=== PATIENT | female | born 1960 | race African-American/Black ===

== ENCOUNTER → 2018-03-28 | Day surgery (SDC) | payer SELFPAY ==
--- NOTE | 2018-04-02 10:26 | WOMENS IMAGING REPORT ---
EXAM DESCRIPTION: U/S BREAST BX; RIGHT DIG DX MAMMO NO CHG COMPLETED DATE/TIME: 03/28/2018 11:45 am; 03/28/2018 12:09 pm REASON FOR STUDY: RIGHT BREAST LUMP; S/P RIGHT BREAST US BX FOR CLIP PLACEMENT N63.10 N63.10 UNSPEC IFIED LUMP IN THE RIGHT BREAST, UNSPECIFIED NOE COMPARISON: 12/10/2016, 02/28/2018 MAMMOGRAMS 02/28/2018 RIGHT BREAST ULTRASOUND TECHNIQUE: The procedure was discussed with the patient and the patient agreed to proceed. The patient was scanned and the area of interest in the 11 o'clock position 5 to 6 cm from the nipple of the right breast was localized. This correlates with the area of concern on prior imaging studie s. This area was targeted for ultrasound-guided core biopsy. After sterile skin prep and 3 mL local lidocaine 1% for skin and deep tissue anesthesia, a 14 gauge c oaxial core biopsy needle was used to obtain several cores of tissue from the lesion. Under ultrasou nd guidance, a ribbon clip was placed in the areas sampled. There were no immediate post-procedure c omplications. MAMMOGRAM: Post-procedure two view mammogram was acquired in the digital mammogram suite. The clip wa s in the expected location. No significant hematoma. Pathology yields a diagnosis of invasive ductal carcinoma and ductal carcinoma in situ high-grade Pathology is concordant. LIMITATIONS: None. FINDINGS: Ultrasound guided breast biopsy as described above. POST PROCEDURE MAMMOGRAMS FOR MARKER PLACEMENT: Yes IMPRESSION: ULTRASOUND-GUIDED CORE BIOPSY OF THE RIGHT BREAST YIELDS A DIAGNOSIS OF INVASIVE DUCTAL CARCINOMA AND DCIS BI-RADS 6 KNOWN MALIGNANCY, APPROPRIATE ACTION SHOULD BE TAKEN COMMENT: COMMUNICATION: DR. RICHTER WAS NOTIFIED OF THESE FINDINGS 03/31/[address] MOULTON PATHOLOGIST Patient medication list reviewed: Yes- Quality ID# [id number]:Eligible professional attests to documenting i n the medical record they obtained, updated, or reviewed the patient's current medications. TECHNICAL DOCUMENTATION: JOB ID: [id number]- All Rights Reserved Reading location - IP/workstation name: [email or web address]
== END ==
LOC: WI 10:23
PROVIDERS: ATTEND Surgery
DX: C50.911 Malignant neoplasm of unspecified site of right female breast (principal)
CPT/HCPCS: 19083; 88305; 88342

== ENCOUNTER → 2018-04-16 | Outpatient (CLI) | payer SELFPAY ==
--- NOTE | 2018-04-16 17:55 | RADIOLOGY REPORT (SQ) ---
EXAM DESCRIPTION: CHEST PA/LATERAL COMPLETED DATE/TIME: 04/16/2018 5:00 pm REASON FOR STUDY: COUGH COMPARISON: 12/15/2013 EXAM PARAMETERS: NUMBER OF VIEWS: two views TECHNIQUE: Digital Frontal and Lateral radiographic views of the chest acquired. RADIATION DOSE: NA LIMITATIONS: none FINDINGS: LUNGS AND PLEURA: No opacities, masses or pneumothorax. No pleural effusion. MEDIASTINUM AND HILAR STRUCTURES: No masses or contour abnormalities. HEART AND VASCULAR STRUCTURES: Heart size is borderline. No pulmonary edema. BONES: No acute findings. HARDWARE: None in the chest. OTHER: No other significant finding. IMPRESSION: Borderline cardiomegaly without pulmonary edema. TECHNICAL DOCUMENTATION: JOB ID: [id number] [employer] All Rights Reserved Reading location - IP/workstation name: [email or web address]
[2018-04-16 18:15] LABS: ALANINE AMINOTRANSFERASE 26 U/L (9-52); ALBUMIN 4.4 g/dL (3.5-5.0); ALKALINE PHOSPHATASE 88 U/L (38-126); ANION GAP 9 (5-19); ASPARTATE AMINO TRANSFERASE 26 U/L (14-36); BILIRUBIN,DIRECT 0.2 mg/dL (0.0-0.4); BILIRUBIN,TOTAL 0.4 mg/dL (0.2-1.3); BLOOD UREA NITROGEN 15 mg/dL (7-20); CALCIUM 10.1 mg/dL (8.4-10.2); CARBON DIOXIDE 29 mmol/L (22-30); CHLORIDE 108 mmol/L (98-107); GLUCOSE 96 mg/dL (75-110); POTASSIUM 4.8 mmol/L (3.6-5.0); SODIUM 146.1 mmol/L (137-145)
== END ==
LOC: OD 16:38
PROVIDERS: ATTEND Surgery
DX: R05 Cough (principal); C50.919 Malignant neoplasm of unspecified site of unspecified female breast
CPT/HCPCS: 36415; 71046; 80053

== ENCOUNTER 2018-05-16 10:20 | Day surgery (SDC) | payer MEDICAID ==
--- NOTE | 2018-05-09 09:37 | RADIOLOGY REPORT (SQ) ---
EXAM DESCRIPTION: CHEST PA/LATERAL COMPLETED DATE/TIME: 05/09/2018 9:23 am REASON FOR STUDY: PRE OP COMPARISON: 04/16/2018 EXAM PARAMETERS: NUMBER OF VIEWS: two views TECHNIQUE: Digital Frontal and Lateral radiographic views of the chest acquired. RADIATION DOSE: NA LIMITATIONS: none FINDINGS: LUNGS AND PLEURA: No opacities, masses or pneumothorax. No pleural effusion. MEDIASTINUM AND HILAR STRUCTURES: No masses or contour abnormalities. HEART AND VASCULAR STRUCTURES: Stable heart size. No evidence for failure. BONES: No acute findings. HARDWARE: None in the chest. OTHER: No other significant finding. IMPRESSION: No acute findings in the chest. TECHNICAL DOCUMENTATION: JOB ID: [id number] [employer]- All Rights Reserved Reading location - IP/workstation name: [email or web address]
[2018-05-09 10:01] LABS: HEMATOCRIT 41.2 % (36.0-47.0); HEMOGLOBIN 14.3 g/dL (12.0-15.5); MEAN CORPUSCULAR HEMOGLOBIN 31.4 pg (27.0-33.4); MEAN CORPUSCULAR HGB CONC 34.8 g/dL (32.0-36.0); MEAN CORPUSCULAR VOLUME 90 fl (80-97); PLATELET COUNT 259 10^3/uL (150-450); RED BLOOD COUNT 4.56 10^6/uL (3.72-5.28); RED CELL DISTRIBUTION WIDTH 13.6 % (11.5-14.0); WHITE BLOOD COUNT 4.9 10^3/uL (4.0-10.5)
[2018-05-09 11:12] LABS: ANION GAP 9 (5-19); BLOOD UREA NITROGEN 13 mg/dL (7-20); CALCIUM 9.6 mg/dL (8.4-10.2); CARBON DIOXIDE 26 mmol/L (22-30); CHLORIDE 107 mmol/L (98-107); GLUCOSE 97 mg/dL (75-110); POTASSIUM 4.3 mmol/L (3.6-5.0); SODIUM 142.2 mmol/L (137-145)
--- NOTE | 2018-05-09 15:09 | EKG REPORT ---
SEVERITY:- NORMAL ECG - SINUS RHYTHM : Confirmed by: Aurelia Conrad 09-May-2018 15:09:10
[~2018-05-16 10:20] MED LIST: CEFAZOLIN SODIUM 2 GM in DEXTROSE 5%-WATER 100 ML IV PRN; IBUPROFEN 800 MG in NORMAL SALINE 250 ML IV PRN; LACTATED RINGERS 1000 ML IV PRN; LIDOCAINE 0.5% INJ-PF (5 MG/ML) 50 ML SDV SUBCUT PRN; LIDOCAINE 4% TRANSPARENT DRESSING 5 GM KIT ONE; LIDOCAINE 4% TRANSPARENT DRESSING 5 GM KIT TP PRN
[2018-05-16] MEDS ORDERED: METHYLENE BLUE 50 MG/10 ML AMPULE ONE (12:53)
[2018-05-16] MEDS ORDERED: BUPIVACAINE HCL 0.25 % INJ/PF (2.5 MG/1 ML) 30 ML VIAL ONE (12:53)
[2018-05-16] MEDS ORDERED: MIDAZOLAM 2 MG/2 ML INJ ONE (12:54)
--- NOTE | 2018-05-16 13:13 | RADIOLOGY REPORT (SQ) ---
EXAM DESCRIPTION: NM LYMPHATICS/LYMPH GLANDS COMPLETED DATE/TIME: 05/16/2018 12:36 pm REASON FOR STUDY: RT BREAST CANCER C50.911 MALIGNANT NEOPLASM OF UNSP SITE OF RIGHT FEMALE JOSE LUIS Z01 .818 ENCOUNTER FOR OTHER PREPROCEDURAL EXAMINATION COMPARISON: None. RADIONUCLIDE AND DOSE: 574 microcuries TC-99m tilmanocept - [employer]. The route of agent administration: Subcutaneous in the skin. TECHNIQUE: The skin of the right breast was prepped in sterile fashion. The radiopharmaceutical was administered in equally divided doses in the periareolar breast. LIMITATIONS: None. FINDINGS: Images demonstrate activity at the injection site. Additional focus of radiotracer activi ty at the expected location of a right supraclavicular or internal mammary node. IMPRESSION: ADMINISTRATION OF RADIOPHARMACEUTICAL FOR SENTINEL LYMPH NODE EVALUATION. Images demons trate activity at the injection site. Additional focus of radiotracer activity at the expected locat ion of the right supraclavicular or internal mammary node. TECHNICAL DOCUMENTATION: JOB ID: [id number] [employer]- All Rights Reserved Reading location - IP/workstation name: [email or web address]
[2018-05-16] MEDS ORDERED: RINGERS SOLUTION,LACTATED 500 ML IV PRN (13:18)
[2018-05-16] MEDS ORDERED: DIPHENHYDRAMINE HCL 50 MG/ML VIAL IV PRN (15:19)
[2018-05-16] MEDS ORDERED: FENTANYL CITRATE INJ/PF 100 MCG/2 ML AMPUL IV PRN ×3 (15:19)
[2018-05-16] MEDS ORDERED: MEPERIDINE HCL/PF INJ 25 MG/1 ML DISP.SYRIN IV PRN (15:19)
[2018-05-16] MEDS ORDERED: PROMETHAZINE HCL INJ 25 MG/1 ML VIAL IV PRN (15:19)
[2018-05-16] MEDS: FENTANYL CITRATE INJ/PF 100 MCG/2 ML AMPUL ONE ×2 (17:40→17:45)
[2018-05-16] MEDS ORDERED: KETOROLAC TROMETHAMINE INJ/PF 30 MG/1 ML SDV ONE (20:40)
[2018-05-16 21:59] VITALS: BP 115/67
--- NOTE | 2018-05-19 14:00 | RADIOLOGY REPORT (SQ) ---
EXAM DESCRIPTION: BREAST SPECIMEN COMPLETED DATE/TIME: 05/16/2018 5:59 pm REASON FOR STUDY: RT BREAST BIOPSY AROUND 3 PM IN OR C50.911 MALIGNANT NEOPLASM OF UNSP SITE OF RIG HT FEMALE JOSE LUIS Z01.818 ENCOUNTER FOR OTHER PREPROCEDURAL EXAMINATION COMPARISON: Prior outside mammograms and ultrasound from 2017 and 2018 Ultrasound-guided core biopsy right breast 03/28/2018 TECHNIQUE: Specimen radiograph from breast procedure performed in the operating room. LIMITATIONS: None. FINDINGS: Specimen radiograph from breast procedure performed in the operating room. The ultrasoun d biopsy clip and spiculated mass are contained within the specimen. Please see procedure note for details and final pathology. IMPRESSION: Specimen radiograph. TECHNICAL DOCUMENTATION: JOB ID: [id number] Reading location - IP/workstation name: [email or web address]
--- NOTE | 2018-05-20 07:59 | Discharge Summary ---
Discharge Summary (SDC) - Discharge Final Diagnosis: Right breast cancer Date of Surgery: 05/16/18 Discharge Date: 05/16/18 Condition: Stable Forms: ASU Anesthesia D/C Instruction, Discharge POC-Adult, Discharge POC-Randolph rgical Service Treatment or Instructions: Discharge home. Diet as tolerated. Activity: Nonstrenuous. Wear Huang wrap x48 hours. Okay to remove Huang wrap and shower after 48 hours. Once Huang wrap is removed, wear supportive bra at all times unless showering. Sullivan 10/325 mg p.o. every 6 hours as needed for pain. Follow-up with me in 7-10 days. Referrals: SAMMY RICHTER MD [ACTIVE STAFF] - Discharge Diet: As Tolerated Respiratory Treatments at Home: Deep Breathing/Coughing, Incentive Spirometer Discharge Activity: Balance Activity w/Rest Home Care Assistance: None Needed Report the Following to Your Physician Immediately: Shortness of Breath, Nausea, Vomiting, Increase in Pain, Fever over 101 Degrees, Unusual Bleeding, Redness, Swelling, Warmth
--- NOTE | 2018-05-20 08:13 | Operative Report ---
Nonrecallable Operative Report DATE OF SURGERY: 05/16/18 PREOPERATIVE DIAGNOSIS: Right breast cancer POSTOPERATIVE DIAGNOSIS: Same as above OPERATION: 1. [place] lymph node biopsy, right axilla. 2. Lumpectomy of the right breast, upper outer quadrant. SURGEON: SAMMY ELIAS CARE TRANSITIONS NURSE: JENNIFER GUZMAN ANESTHESIA: GA TISSUE REMOVED OR ALTERED: 1. [place] lymph node #1. 2. [place] lymph node #2. 3. Right breast cancer/lumpectomy COMPLICATIONS: None apparent ESTIMATED BLOOD LOSS: 20 cc PROCEDURE: Drains/implants: None. Procedure in detail: After informed consent was obtained, the patient was brought to the operating room and laid in the supine position. The area of the right breast, axilla, and arm were prepped and draped in a normal sterile fashion. The gamma probe was then used to dejan the area of diffusion on the right breast. The gamma probe was then used to examine the axilla. There was an obvious hot spot found within the axilla. An incision was created in oblique fashion in the right axilla. Dissection was carried through the subcutaneous tissue to the axillary fascia. The axillary fascia was divided sharply and the axilla proper was entered. Using the gamma probe, the first sentinel lymph node was identified and excised using hemoclips and sharp dissection. The lymph node was removed from the patient and an ex vivo count was performed. The first sentinel lymph node had a count of 10,916. The gamma probe was again used to examine the axilla. Another hot spot was identified. A second sentinel lymph node was then removed from the patient using hemoclips and sharp dissection. An ex vivo count was performed on the second sentinel lymph node, measuring 1596. The gamma probe was again used to examine the axilla. No other hot spots could be identified. A background count of 29 was then obtained. This confirmed that all sentinel lymph nodes were removed. Hemostasis was then achieved. The subcutaneous tissue was closed using 3-0 Vicryl suture. The overlying skin was closed using 4-0 Vicryl Rapide suture in subcuticular fashion. Attention was then turned to excision of the breast cancer. The tumor of the right breast was easily identified via palpation and ultrasonography. The breast was marked. A curvilinear incision was created in the upper outer quadrant of the right breast with a 15 blade scalpel. A generous lumpectomy was then performed via electrocautery, ensuring removal of the tumor with adequate margins. The lumpectomy specimen was removed from the patient, and marked for pathology. Short stitch superior, long stitch lateral, one long/1 short is anterior. The specimen was then imaged radiographically. The tumor and tumor marker were found to be within the specimen. Hemostasis was then achieved. The subcutaneous tissue was closed using 3-0 Vicryl suture in simple interrupted fashion. The overlying skin was closed using 4-0 Vicryl Rapide suture in subcuticular fashion. Dressings were placed, and the procedure was concluded. All sponge, instrument, and needle counts were correct x2. Condition: Stable. Jennifer Guzman PA-C was scrubbed and present the entirety of the procedure. She assisted with all portions of the procedure including opening of the axilla, identification of the sentinel lymph nodes, removal of the sentinel lymph nodes, dissection of the lumpectomy specimen, closure of the subcutaneous tissue, and closure of the skin.
== END 2018-05-16 22:45 | disposition home or self-care (01) ==
LOC: OROUT 10:20 → 2N 19:54 → OROUT 22:45
PROVIDERS: ATTEND Surgery
DX: D05.11 Intraductal carcinoma in situ of right breast (principal); C77.3 Secondary and unspecified malignant neoplasm of axilla and upper limb lymph nodes; F41.9 Anxiety disorder, unspecified; J32.9 Chronic sinusitis, unspecified; Z01.818 Encounter for other preprocedural examination; Z79.899 Other long term (current) drug therapy; E66.9 Obesity, unspecified; Z68.34 Body mass index [BMI] 34.0-34.9, adult
CPT/HCPCS: 93005; 36415; 85027; 80048; 88342 ×2; 88305 ×2; 71046; 78195; 93010; 76098; 19301; 38500; A9520; J2250; J0690; J3010 ×2; J1885; J3490; J2405; S0020; J7050; J2704; J0131; J1741; 1610; Q9968

== ENCOUNTER 2018-06-11 09:19 | Day surgery (SDC) | payer MEDICAID ==
[~2018-06-11 09:19] MED LIST changes: +CEFAZOLIN 2 GM/D5W RTU 2 GM/50 ML RTUPB IV ONE; +CEFAZOLIN 2 GM/D5W RTU 2 GM/50 ML RTUPB IV PRN; -CEFAZOLIN SODIUM 2 GM in DEXTROSE 5%-WATER 100 ML IV PRN; -IBUPROFEN 800 MG in NORMAL SALINE 250 ML IV PRN; -LACTATED RINGERS 1000 ML IV PRN; -LIDOCAINE 0.5% INJ-PF (5 MG/ML) 50 ML SDV SUBCUT PRN; -LIDOCAINE 4% TRANSPARENT DRESSING 5 GM KIT ONE; -LIDOCAINE 4% TRANSPARENT DRESSING 5 GM KIT TP PRN; +RINGERS SOLUTION,LACTATED 1,000 ML IV PRN
[2018-06-11 10:29] LABS: HEMATOCRIT 41.1 % (36.0-47.0); HEMOGLOBIN 14.4 g/dL (12.0-15.5); MEAN CORPUSCULAR HEMOGLOBIN 31.6 pg (27.0-33.4); MEAN CORPUSCULAR VOLUME 90 fl (80-97); PLATELET COUNT 259 10^3/uL (150-450); RED BLOOD COUNT 4.56 10^6/uL (3.72-5.28); RED CELL DISTRIBUTION WIDTH 13.6 % (11.5-14.0); WHITE BLOOD COUNT 5.1 10^3/uL (4.0-10.5)
[2018-06-11 10:37] LABS: INTERNATIONAL RATION (INR) 0.97; PARTIAL THROMBOPLASTIN TIME 29.8 SEC (23.5-35.8); PROTHROMBIN TIME 13.4 SEC (11.4-15.4)
[2018-06-11 10:48] LABS: BLOOD UREA NITROGEN 7 mg/dL (7-20)
[2018-06-11] MEDS ORDERED: BACITRACIN INJ 50,000 UNIT VIAL ONE (10:56)
[2018-06-11] MEDS ORDERED: LIDOCAINE 0.5% INJ-PF (5 MG/ML) 50 ML SDV ONE (10:56)
[2018-06-11] MEDS ORDERED: FENTANYL CITRATE INJ/PF 100 MCG/2 ML AMPUL ONE ×2 (10:57→11:49)
[2018-06-11] MEDS ORDERED: MIDAZOLAM 2 MG/2 ML INJ ONE ×3 (10:57→11:37)
--- NOTE | 2018-06-11 12:54 | Discharge Summary ---
Discharge Summary (SDC) - Discharge Final Diagnosis: Breast cancer Date of Surgery: 06/11/18 Discharge Date: 06/11/18 Forms: Sedation D/C Instructions, Discharge POC-Surgical Service Treatment or Instructions: Discharge home. Diet as tolerated. Activity as tolerated. Follow-up with me as previously scheduled. Okay to use Mediport. Okay to shower starting tomorrow. Referrals: SAMMY RICHTER MD [ACTIVE STAFF] - Discharge Diet: As Tolerated Respiratory Treatments at Home: Deep Breathing/Coughing, Incentive Spirometer Discharge Activity: Activity As Tolerated Home Care Assistance: None Needed Report the Following to Your Physician Immediately: Shortness of Breath, Nausea, Vomiting, Increase in Pain, Redness, Swelling, Warmth, Increased Soreness, Drainage-Yellow
--- NOTE | 2018-06-11 13:04 | Operative Report ---
Nonrecallable Operative Report DATE OF SURGERY: 06/11/18 PREOPERATIVE DIAGNOSIS: Breast cancer POSTOPERATIVE DIAGNOSIS: Same OPERATION: 1. Ultrasound-guided central venous puncture with photodocumentation. 2. Superior venacavogram. 3. Insertion of left internal jugular vein Mediport. SURGEON: SAMMY RICHTER ANESTHESIA: Moderate Sedation - 6 mg of Versed and 100 mcg of fentanyl TISSUE REMOVED OR ALTERED: None COMPLICATIONS: None apparent ESTIMATED BLOOD LOSS: Minimal PROCEDURE: Drains/implants: Left internal jugular vein Mediport. Procedure in detail: After informed consent was obtained, the patient was brought into the cardiac Food Production Supervisor and placed in the supine position. The area of the neck and chest were prepped and draped in a normal sterile fashion. An ultrasound was then used to identify the left internal jugular vein. It was compressible with normal flow. Under direct ultrasonic guidance, the internal jugular vein was cannulated with the supplied access needle. This was done after 1% lidocaine was infiltrated into the skin of the left neck and chest. Dark venous, nonpulsatile blood was returned in the syringe. The wire was then inserted into the vein easily. The ultrasound was used to document the wire within the left internal jugular vein. Documentation was saved and placed on the chart. Fluoroscopy was then used to visualize the wire. The wire traveled from the left internal jugular vein, into the left subclavian vein. With some manipulation the wire was moved into the superior vena cava. This did require some manipulation of the wire. This was somewhat unusual. Secondary to this, a superior venacavogram was obtained to ensure there was no evidence of stricture or thrombosis. A 5 Indonesian sheath was inserted over the wire under fluoroscopic guidance. 10 cc of Omnipaque was injected into the sheath, under fluoroscopy. No evidence of stricture, thrombosis, or other abnormality was identified. Once this was confirmed, the 5 Indonesian sheath was removed and replaced with the dilator/breakaway sheath supplied with the Mediport. The dilator and breakaway sheath were inserted under direct fluoroscopic guidance. A separate incision was then created in the left chest to accommodate the Mediport hub. The wire and dilator were then removed from the breakaway sheath as one piece. The catheter was tunneled from the Mediport hub site to the needle insertion site. The catheter was inserted into the breakaway sheath. This was done under fluoroscopy. The breakaway sheath was cracked and pulled away, leaving the catheter within the SVC. The catheter was then pulled back to an appropriate level. It was trimmed to length, and the Mediport hub was attached. The Mediport hub was buried in the previously created pocket. The hub was then sutured to the chest wall using 3-0 Vicryl suture in simple interrupted fashion. The overlying skin was closed using 4-0 Vicryl Rapide suture in subcuticular fashion. The Mediport hub was then accessed with a Shen needle and flushed easily. Fluoroscopy was used to document the Mediport to be in good place. At this time a dressing was placed and the procedure was concluded. All sponge, instrument, and needle counts were correct. Condition: Stable.
--- NOTE | 2018-06-11 14:25 | RADIOLOGY REPORT (SQ) ---
EXAM DESCRIPTION: CHEST SINGLE VIEW COMPLETED DATE/TIME: 06/11/2018 1:30 pm REASON FOR STUDY: CENTRAL LINE COMPARISON: Chest films 05/09/2018, 04/16/2018 EXAM PARAMETERS: NUMBER OF VIEWS: One view. TECHNIQUE: Single frontal radiographic view of the chest acquired. RADIATION DOSE: NA LIMITATIONS: None. FINDINGS: LUNGS AND PLEURA: No opacities, masses or pneumothorax. No pleural effusion. MEDIASTINUM AND HILAR STRUCTURES: No masses. Contour normal. HEART AND VASCULAR STRUCTURES: Mild cardiomegaly BONES: No acute findings. HARDWARE: Post left permanent central line with the tip at the conflict to the right and left brachio cephalic veins. No pneumothorax. Surgical clips right breast and axilla. OTHER: No other significant finding. IMPRESSION: No pneumothorax post left permanent central line placement with the tip at the junction of the right and left brachiocephalic veins. TECHNICAL DOCUMENTATION: JOB ID: [id number] [employer]- All Rights Reserved Reading location - IP/workstation name: [email or web address]
[2018-06-11 14:43] VITALS: BP 125/66
--- NOTE | 2018-06-11 14:53 | RADIOLOGY REPORT (SQ) ---
EXAM DESCRIPTION: PORTACATH INSERTION; GUIDANCE FLUOROSCOPIC COMPLETED DATE/TIME: 06/11/2018 12:49 pm REASON FOR STUDY: C50.911 RT BREAST CANCER C50.911 MALIGNANT NEOPLASM OF UNSP SITE OF RIGHT FEMALE JOSE LUIS COMPARISON: Post procedure chest film same date FLUOROSCOPY TIME: 3.1 minutes 11 digital fluoroscopic images saved to PACS. TECHNIQUE: Intra-operative images acquired during surgical procedure to evaluate progress. NUMBER OF IMAGES: 11 digital fluoroscopic images saved to pac's LIMITATIONS: None. FINDINGS: Intra procedural imaging and fluoro during placement of a left-sided permanent central nitish e with the tip in the superior vena cava. Please see the operative report for further details IMPRESSION: Intra procedural imaging and fluoro COMMENT: Quality ID [id number]: Final reports for procedures using fluoroscopy that document radiation exp osure indices, or exposure time and number of fluorographic images (if radiation exposure indices are not available) Please consult full operative report of the attending physician for description of the procedure. TECHNICAL DOCUMENTATION: JOB ID: [id number] [employer]- All Rights Reserved Reading location - IP/workstation name: [email or web address]
--- NOTE | 2018-06-11 14:53 | RADIOLOGY REPORT (SQ) ---
EXAM DESCRIPTION: PORTACATH INSERTION; GUIDANCE FLUOROSCOPIC COMPLETED DATE/TIME: 06/11/2018 12:49 pm REASON FOR STUDY: C50.911 RT BREAST CANCER C50.911 MALIGNANT NEOPLASM OF UNSP SITE OF RIGHT FEMALE JOSE LUIS COMPARISON: Post procedure chest film same date FLUOROSCOPY TIME: 3.1 minutes 11 digital fluoroscopic images saved to PACS. TECHNIQUE: Intra-operative images acquired during surgical procedure to evaluate progress. NUMBER OF IMAGES: 11 digital fluoroscopic images saved to pac's LIMITATIONS: None. FINDINGS: Intra procedural imaging and fluoro during placement of a left-sided permanent central nitish e with the tip in the superior vena cava. Please see the operative report for further details IMPRESSION: Intra procedural imaging and fluoro COMMENT: Quality ID [id number]: Final reports for procedures using fluoroscopy that document radiation exp osure indices, or exposure time and number of fluorographic images (if radiation exposure indices are not available) Please consult full operative report of the attending physician for description of the procedure. TECHNICAL DOCUMENTATION: JOB ID: [id number] [employer]- All Rights Reserved Reading location - IP/workstation name: [email or web address]
== END 2018-06-11 14:40 | disposition home or self-care (01) ==
LOC: CCL 09:19
PROVIDERS: ATTEND Surgery
DX: C50.411 Malignant neoplasm of upper-outer quadrant of right female breast (principal); F41.9 Anxiety disorder, unspecified; Z79.899 Other long term (current) drug therapy; Z01.818 Encounter for other preprocedural examination
CPT/HCPCS: 36415; 84520; 82565; 85027; 85610; 85730; 36561; 76937; 77001; 71045; C1752; C1788; Q9967; J2250; J3490 ×2; J3010; J1644; J0690

== ENCOUNTER 2018-08-21 12:28 | Inpatient (IN) | payer MEDICAID ==
[2018-08-21] MEDS ORDERED: CEFEPIME INJ 1 GM VIAL IV ONE (12:50)
[2018-08-21] MEDS ORDERED: NORMAL SALINE 1000 ML 1,000 ML IV ONE (12:51)
[2018-08-21] MEDS ORDERED: ONDANSETRON HCL INJ/PF 4 MG/2 ML SDV IV ONE (12:52)
--- NOTE | 2018-08-21 12:54 | ER Document Report ---
ED Medical Screen (RME) - General Chief Complaint: Abnormal Lab Results Stated Complaint: WEAKNESS Time Seen by Provider: 08/21/18 12:47 TRAVEL OUTSIDE OF THE [place] IN LAST 30 DAYS: No - HPI Notes: 08/21/18 12:52 Patient is a 58-year-old female with current history of stage II breast cancer and on chemotherapy with the last treatment August 14 who presents the emergency department per the direction of oncology for neutropenic fever, fatigue, vomiting/diarrhea. Oncology would like a septic workup performed with cefepime 2 g IV and vancomycin 15 mg/kg based on her creatinine x1 dose. Her PCM is Dr. Cooper and oncology would like her admitted. Denies COOLEY, neck pain, CP, SOB, Abd pain, or rash. I have treated and performed a rapid initial assessment of this patient. A comprehensive ED assessment and evaluation of the patient, analysis of test results and completion of medical decision making process will be conducted by additional ED providers. PHYSICAL EXAMINATION: GENERAL: Well-appearing, well-nourished and in no acute distress. A&Ox4. Answers questions appropriately. LUNGS: Breath sounds clear to auscultation bilaterally and equal. No wheezes rales or rhonchi. HEART: Regular rate and rhythm without murmurs, rubs, gallops. Extremities: No cyanosis, clubbing, or edema b/l. NEUROLOGICAL: Normal speech, normal gait. PSYCH: Normal mood, normal affect. - Related Data Allergies/Adverse Reactions: No Known Allergies Allergy (Verified 06/11/18 09:30) Past Medical History - Past Medical History Cardiac Medical History: Denies: Hx Coronary Artery Disease, Hx Heart Attack, Hx Hypertension Pulmonary Medical History: Denies: Hx Asthma, Hx Bronchitis, Hx COPD, Hx Pneumonia Neurological Medical History: Denies: Hx Cerebrovascular Accident, Hx Seizures Musculoskeltal Medical History: Denies Hx Arthritis - Immunizations Immunizations up to date: Yes Hx Diphtheria, Pertussis, Tetanus Vaccination: Yes History of Influenza Vaccine for 02/2017 - 07/2017 Season: No Physical Exam - Vital signs Vitals: Temp Pulse Resp BP Pulse Ox 98.3 F 116 H 20 112/63 99 08/21/18 12:40 08/21/18 12:40 08/21/18 12:40 08/21/18 12:40 08/21/18 12:40 Course - Vital Signs Vital signs: Temp Pulse Resp BP Pulse Ox 98.3 F 116 H 20 112/63 99 08/21/18 12:40 08/21/18 12:40 08/21/18 12:40 08/21/18 12:40 08/21/18 12:40
[2018-08-21] MEDS ORDERED: VANCOMYCIN HCL INJ 1000 MG VIAL IV ONE (14:05)
[2018-08-21 14:20] LABS: INTERNATIONAL RATION (INR) 0.95; PROTHROMBIN TIME 13.2 SEC (11.4-15.4)
[2018-08-21 14:23] LABS: HEMATOCRIT 33.4 % (36.0-47.0); HEMOGLOBIN 11.7 g/dL (12.0-15.5); MEAN CORPUSCULAR HEMOGLOBIN 32.5 pg (27.0-33.4); MEAN CORPUSCULAR HGB CONC 35.1 g/dL (32.0-36.0); MEAN CORPUSCULAR VOLUME 93 fl (80-97); PLATELET COUNT 106 10^3/uL (150-450); RED CELL DISTRIBUTION WIDTH 16.6 % (11.5-14.0)
--- NOTE | 2018-08-21 14:28 | RADIOLOGY REPORT (SQ) ---
EXAM DESCRIPTION: CHEST SINGLE VIEW COMPLETED DATE/TIME: 08/21/2018 2:11 pm REASON FOR STUDY: fever COMPARISON: 06/11/2018 EXAM PARAMETERS: NUMBER OF VIEWS: One view. TECHNIQUE: Single frontal radiographic view of the chest acquired. RADIATION DOSE: NA LIMITATIONS: None. FINDINGS: LUNGS AND PLEURA: No opacities, masses or pneumothorax. No pleural effusion. MEDIASTINUM AND HILAR STRUCTURES: No masses. Contour normal. HEART AND VASCULAR STRUCTURES: Heart normal in size. Normal vasculature. BONES: No acute findings. HARDWARE: Injection port on the left. OTHER: No other significant finding. IMPRESSION: NO ACUTE RADIOGRAPHIC FINDING IN THE CHEST. TECHNICAL DOCUMENTATION: JOB ID: [id number] [employer]- All Rights Reserved Reading location - IP/workstation name: [email or web address]
[2018-08-21] MEDS ORDERED: LIDOCAINE 2% VISCOUS SOLN 20 ML UDCUP PO ONE (14:32)
[2018-08-21] MEDS ORDERED: METOCLOPRAMIDE HCL ORAL SOLN 10 MG/10 ML UDCUP PO ONE (14:32)
[2018-08-21] MEDS ORDERED: MAG HYDROX/AL HYDROX/SIMETH SUSP 30 ML UDCUP PO ONE (14:32)
[2018-08-21 14:44] LABS: ALANINE AMINOTRANSFERASE 28 U/L (9-52); ALBUMIN 3.9 g/dL (3.5-5.0); ALKALINE PHOSPHATASE 84 U/L (38-126); ANION GAP 6 (5-19); ASPARTATE AMINO TRANSFERASE 27 U/L (14-36); BILIRUBIN,DIRECT 0.2 mg/dL (0.0-0.4); BILIRUBIN,TOTAL 0.6 mg/dL (0.2-1.3); BLOOD UREA NITROGEN 11 mg/dL (7-20); CALCIUM 10.1 mg/dL (8.4-10.2); CARBON DIOXIDE 27 mmol/L (22-30); CHLORIDE 105 mmol/L (98-107); GLUCOSE 90 mg/dL (75-110); POTASSIUM 3.8 mmol/L (3.6-5.0); SODIUM 137.6 mmol/L (137-145); TOTAL PROTEIN 7.1 g/dL (6.3-8.2)
[2018-08-21 15:04] LABS: WHITE BLOOD COUNT 1.2 10^3/uL (4.0-10.5)
[2018-08-21 15:06] LABS: ABSOLUTE LYMPHOCYTES# (MANUAL) 0.8 10^3/uL (0.5-4.7); ABSOLUTE NEUTROPHILS# (MANUAL) 0.3 10^3/uL (1.7-8.2); BASOPHILS % (MANUAL) 0 % (0-2); EOSINOPHILS % (MANUAL) 0 % (0-6); LYMPHOCYTES % (MANUAL) 66 % (13-45); MONOCYTES % (MANUAL) 4 % (3-13); SEGMENTED NEUTROPHILS % (MAN) 28 % (42-78); TOTAL CELLS COUNTED 50
[2018-08-21 15:09] LABS: ANISOCYTOSIS 1+; OVALOCYTES SLIGHT; PLATELET COMMENT DECREASED; POIKILOCYTOSIS SLIGHT; TEAR DROP CELLS SLIGHT
[2018-08-21 16:08] LABS: APPEARANCE,URINE SLIGHTLY-CLOUDY; BILIRUBIN,URINE SMALL (NEGATIVE); GLUCOSE, URINE NEGATIVE (NEGATIVE); KETONES,URINE NEGATIVE (NEGATIVE); LEUKOCYTE ESTERASE,URINE TRACE (NEGATIVE); NITRITE,URINE NEGATIVE (NEGATIVE); PROTEIN,URINE NEGATIVE (NEGATIVE)
[2018-08-21 16:10] LABS: COLOR,URINE YELLOW
--- NOTE | 2018-08-21 17:44 | RADIOLOGY REPORT (SQ) ---
EXAM DESCRIPTION: CT ABD/PELVIS WITH IV ONLY COMPLETED DATE/TIME: 08/21/2018 5:06 pm REASON FOR STUDY: LUQ and LLL abd pain COMPARISON: None. TECHNIQUE: CT scan of the abdomen and pelvis performed using helical scanning technique with dynamic intravenous contrast injection. No oral contrast. Images reviewed with lung, soft tissue, and bone windows. Reconstructed coronal and sagittal MPR images reviewed. Delayed images for evaluation of the urinary system also acquired. All images stored on PACS. All CT scanners at this facility use dose modulation, iterative reconstruction, and/or weight based d osing when appropriate to reduce radiation dose to as low as reasonably achievable (ALARA). [facility]: Dose Right [facility]: CareDose [facility]: Dose Right [facility]: Teradose 4D [facility]: [employer] CONTRAST TYPE AND DOSE: contrast/concentration: Isovue 350.00 mg/ml; Total Contrast Delivered: 95.0 ml; Total Saline Delivered: 71.0 ml RENAL FUNCTION: BUN 11 creatinine 0.58 RADIATION DOSE: CT Rad equipment meets quality standard of care and radiation dose reduction techniq ues were employed. CTDIvol: 10.7 - 15.3 mGy. DLP: 1467 mGy-cm.. LIMITATIONS: None. FINDINGS: LOWER CHEST: No significant findings. No nodules or infiltrates. LIVER: Normal size. No masses. No dilated ducts. SPLEEN: Normal size. No focal lesions. PANCREAS: No masses. No significant calcifications. No adjacent inflammation or peripancreatic fluid collections. Pancreatic duct not dilated. GALLBLADDER: Surgically absent. ADRENAL GLANDS: No significant masses or asymmetry. RIGHT KIDNEY AND URETER: No solid masses. No significant calcifications. No hydronephrosis or hyd roureter. LEFT KIDNEY AND URETER: No solid masses. No significant calcifications. No hydronephrosis or hydr oureter. AORTA AND VESSELS: No aneurysm. No dissection. Renal arteries, SMA, celiac without stenosis. RETROPERITONEUM: No retroperitoneal adenopathy, hemorrhage or masses. BOWEL AND PERITONEAL CAVITY: No masses or inflammatory changes. No free fluid or peritoneal masses. APPENDIX: Not identified. PELVIS: The myometrium is heterogeneous with multiple fibroids. Urinary bladder is normal. ABDOMINAL WALL: No masses. No hernias. BONES: No significant or acute findings. OTHER: No other significant finding. IMPRESSION: Uterine fibroids. No acute findings in the abdomen or pelvis. TECHNICAL DOCUMENTATION: JOB ID: [id number] Quality ID # [id number]: Final reports with documentation of one or more dose reduction techniques (e.g., Au tomated exposure control, adjustment of the mA and/or kV according to patient size, use of iterative reconstruction technique) 2010 [employer]- All Rights Reserved Reading location - IP/workstation name: [email or web address]
--- NOTE | 2018-08-21 17:59 | EKG REPORT ---
SEVERITY:- BORDERLINE ECG - SINUS TACHYCARDIA BORDERLINE T WAVE ABNORMALITIES : Confirmed by: Aurelia Conrad 21-Aug-2018 17:58:29
--- NOTE | 2018-08-21 19:12 | ER Document Report ---
Entered by RANDY CLARKE SCRIBE 08/21/18 [id number] Acting as scribe for:KENNEY ECHEVARRIA DO ED General - General Chief Complaint: Abnormal Lab Results Stated Complaint: WEAKNESS Time Seen by Provider: 08/21/18 12:47 Primary Care Provider: YANET HAY MD [Primary Care Provider] - Follow up as needed Information source: Patient Notes: 58-year-old female who was referred to the emergency department by Dr. Jace kim her oncologist due to concerns of her neutropenic fever. Patient has stage II breast cancer and is currently undergoing chemotherapy with taxotere, carbo platin, and Aloxi. Patient states she has a history of GERD and she has been having GERD related pain for the last few days but denies any chest pain. Patient admits some sweats and chills at home, admits vomiting and some diarrhea. Denies taking her temperature and finding a fever. Patient does complain of some left-sided abdominal pain in addition to the burning epigastric pain. TRAVEL OUTSIDE OF THE [place] IN LAST 30 DAYS: No - Related Data Allergies/Adverse Reactions: No Known Allergies Allergy (Verified 06/11/18 09:30) Past Medical History - General Information source: Patient - Social History Smoking Status: Never Smoker Cigarette use (# per day): No Chew tobacco use (# tins/day): No Drug Abuse: None Lives with: Family Family History: Reviewed & Not Pertinent Patient has suicidal ideation: No Patient has homicidal ideation: No Malignancy Medical History: Reports: Hx Breast Cancer Surgical Hx: Negative - Immunizations Immunizations up to date: Yes Hx Diphtheria, Pertussis, Tetanus Vaccination: Yes Review of Systems - Review of Systems Constitutional: See HPI, Other - abnormal labs EENT: No symptoms reported Cardiovascular: No symptoms reported Respiratory: No symptoms reported Gastrointestinal: See HPI, Abdominal pain Genitourinary: No symptoms reported Female Genitourinary: No symptoms reported Musculoskeletal: No symptoms reported Skin: No symptoms reported Hematologic/Lymphatic: No symptoms reported Neurological/Psychological: No symptoms reported -: Yes All other systems reviewed and negative Physical Exam - Vital signs Vitals: Temp Pulse Resp BP Pulse Ox 98.3 F 116 H 20 112/63 99 08/21/18 12:40 08/21/18 12:40 08/21/18 12:40 08/21/18 12:40 08/21/18 12:40 Interpretation: Tachycardic - Notes Notes: PHYSICAL EXAM GENERAL: Alert, interacts well. No acute distress. HEAD: Normocephalic, atraumatic. EYES: Pupils equal, round, and reactive to light. Extraocular movements intact. ENT: Oral mucosa moist, tongue midline. NECK: Full range of motion. Supple. Trachea midline. LUNGS: Clear to auscultation bilaterally, no wheezes, rales, or rhonchi. Appears short or breath when rolling over for lung auscultation. HEART: Regular rate and rhythm. No murmurs, gallops, or rubs. ABDOMEN: Soft, epigastric tenderness with palpation, mild left upper quadrant tenderness with palpation. Non-distended. Bowel sounds present in all 4 quadrants. No guarding, rigidity, or rebound. EXTREMITIES: Moves all 4 extremities spontaneously. No edema, radial and dorsalis pedis pulses 2/4 bilaterally. No cyanosis. NEUROLOGICAL: Alert and oriented x3. Normal speech. PSYCH: Normal affect, normal mood. SKIN: Warm, dry, normal turgor. No rashes or lesions noted. Course - Re-evaluation Re-evalutation: 08/21/18 19:10 CBC shows neutropenia with a white blood cell count of 1.2, she is anemic with hemoglobin 11.7, platelets are low at 106, coags normal, CMP unremarkable, urinalysis shows trace leukocyte esterase, blood and urine cultures have been sent. Chest x-ray shows no acute process, it does show a port in good position. CT scan of the abdomen pelvis shows uterine fibroids but no sign of infection. Patient was given empiric antibiotics for subjective neutropenic fever in the form of vancomycin and cefepime. Discussed with Dr. Hay who agrees to admit the patient to his service. - Vital Signs Vital signs: Temp Pulse Resp BP Pulse Ox 98.5 F 116 H 18 106/61 98 08/21/18 18:19 08/21/18 12:40 08/21/18 16:33 08/21/18 16:33 08/21/18 16:33 - Laboratory Result Diagrams: 08/21/18 13:59 08/21/18 13:59 Laboratory results interpreted by me: 08/21/18 08/21/18 13:59 15:57 WBC 1.2 L* RBC 3.60 L Hgb 11.7 L Hct 33.4 L RDW 16.6 H Plt Count 106 L Seg Neuts % (Manual) 28 L Lymphocytes % (Manual) 66 H Abs Neuts (Manual) 0.3 L Abs Monocytes (Manual) 0.0 L Urine Bilirubin SMALL H Urine Urobilinogen 4.0 H Ur Leukocyte Esterase TRACE H Urine Ascorbic Acid 40 H - EKG Interpretation by Me Additional EKG results interpreted by me: 08/21/18 19:11 EKG shows sinus tachycardia at a rate of 106, normal axis, normal intervals, no ST segment elevations or depressions, no T wave inversions although there is somewhat global T wave flattening per my interpretation. Discharge - Discharge Clinical Impression: Neutropenic fever, Stage II breast cancer in female Condition: Fair Disposition: ADMITTED INPATIENT Admitting Provider: Allison Unit Admitted: Medical Floor - Needs an isolation room Referrals: YANET HAY MD [Primary Care Provider] - Follow up as needed I personally performed the services described in the documentation, reviewed and edited the documentation which was dictated to the scribe in my presence, and it accurately records my words and actions.
[2018-08-21] MEDS ORDERED: ONDANSETRON HCL INJ/PF 4 MG/2 ML SDV IV PRN (22:07)
[2018-08-21] MEDS ORDERED: LORAZEPAM 0.5 MG TABLET PO PRN (22:08)
[2018-08-21] MEDS ORDERED: HYDROCODONE/ACETAMINOPHEN 10-325 MG TABLET PO PRN (22:08)
[2018-08-21] MEDS ORDERED: VALACYCLOVIR HCL 500 MG TABLET ONE (22:25)
[2018-08-21] MEDS: NORMAL SALINE 1000 ML 1,000 ML IV PRN (22:34)
[2018-08-21] MEDS ORDERED: VALACYCLOVIR HCL 500 MG TABLET PO ONE (23:00)
[2018-08-21] MEDS ORDERED: GABAPENTIN 100 MG CAPSULE PO ONE (23:00)
[2018-08-22] MEDS: PANTOPRAZOLE SODIUM 20 MG TABLET.DR PO SCH (05:53)
--- NOTE | 2018-08-22 09:13 | PDOC CONSULTATION ---
Consultation Consult Date: 08/22/18 Attending physician:: YANET HAY Consult reason:: Neutropenic fever, pancytopenia, early stage breast ca s/p cycle #4 of chemo History of Present Illness Admission Date/PCP: 08/21/18 19:14 YANET HAY Patient complains of: Fever, weakness, diarrhea, dehydration History of Present Illness: KARINA LEE is a 58 year old female with known history of early stage breast cancer, received cycle #4 of Taxotere/Cytoxan last week. She was not able to get her Neulasta shot because of pharmacy issues, she came to our office yesterday. She received fluids earlier this week because of poor p.o. intake and dehydration. When she visited her us yesterday, she was hypotensive, tachycardic, febrile with a fever of 100, very weak. She had 48 hours of diarrhea. We sent her to the ED for admission. In the ED she had infectious workup started and thus far all workup is negative, C. difficile is negative. Chest x-ray is clear. We gave her 1 dose of cefepime and Vanco in the ED. Past Medical History Cardiac Medical History: Denies: Coronary Artery Disease, Myocardial Infarction, Hypertension Pulmonary Medical History: Denies: Asthma, Bronchitis, Chronic Obstructive Pulmonary Disease (COPD), Pneumonia Neurological Medical History: Denies: Seizures Malignancy Medical History: Reports: Breast Cancer Musculoskeltal Medical History: Denies: Arthritis Hematology: Denies: Anemia Social History Information Source: Patient Lives with: Family Smoking Status: Former Smoker Frequency of Alcohol Use: Rare Hx Recreational Drug Use: No Drugs: None Hx Prescription Drug Abuse: No - Advance Directive Resuscitation Status: Full Code Family History Family History: Reviewed & Not Pertinent Parental Family History Reviewed: Yes Children Family History Reviewed: Yes Sibling(s) Family History Reviewed.: Yes Medication/Allergy Home Medications: Gabapentin [Neurontin 100 mg Capsule] 100 mg PO QHS 08/21/18 Hydrocodone/Acetaminophen [[place] 10-325 Tablet] 1 tab PO Q6HP PRN 08/21/18 Lorazepam [Ativan 0.5 mg Tablet] 0.5 mg PO Q8HP PRN 08/21/18 Valacyclovir HCl [Valtrex 500 mg Tablet] 500 mg PO BID 08/21/18 Allergies/Adverse Reactions: No Known Allergies Allergy (Verified 06/11/18 09:30) Review of Systems Constitutional: ABSENT: chills, fever(s), headache(s), weight gain, weight loss Eyes: ABSENT: visual disturbances Ears: ABSENT: hearing changes Cardiovascular: ABSENT: chest pain, dyspnea on exertion, edema, orthropnea, palpitations Respiratory: ABSENT: cough, hemoptysis Gastrointestinal: ABSENT: abdominal pain, constipation, diarrhea, hematemesis, hematochezia, nausea, vomiting Genitourinary: ABSENT: dysuria, hematuria Musculoskeletal: ABSENT: joint swelling Integumentary: ABSENT: rash, wounds Neurological: ABSENT: abnormal gait, abnormal speech, confusion, dizziness, focal weakness, syncope Psychiatric: ABSENT: anxiety, depression, homidical ideation, suicidal ideation Endocrine: ABSENT: cold intolerance, heat intolerance, polydipsia, polyuria Hematologic/Lymphatic: ABSENT: easy bleeding, easy bruising Physical Exam Vital Signs: Temp Pulse Resp BP Pulse Ox 98.2 F 102 H 16 97/48 L 97 08/22/18 07:25 08/22/18 07:25 08/22/18 07:25 08/22/18 07:25 08/22/18 07:25 Intake & Output 08/21/18 08/22/18 08/23/18 06:59 06:59 06:59 Intake Total 1773 Balance 1773 Weight 84.1 kg General appearance: PRESENT: no acute distress, well-developed, well-nourished Head exam: PRESENT: atraumatic, normocephalic Eye exam: PRESENT: conjunctiva pink, EOMI, PERRLA. ABSENT: scleral icterus Ear exam: PRESENT: normal external ear exam Mouth exam: PRESENT: moist, tongue midline Neck exam: ABSENT: carotid bruit, JVD, lymphadenopathy, thyromegaly Respiratory exam: PRESENT: clear to auscultation tomas. ABSENT: rales, rhonchi, wheezes Cardiovascular exam: PRESENT: RRR. ABSENT: diastolic murmur, rubs, systolic murmur Pulses: PRESENT: normal dorsalis pedis pul Vascular exam: PRESENT: normal capillary refill GI/Abdominal exam: PRESENT: normal bowel sounds, soft. ABSENT: distended, guarding, mass, organolmegaly, rebound, tenderness Rectal exam: PRESENT: deferred Extremities exam: PRESENT: full ROM. ABSENT: calf tenderness, clubbing, pedal edema Neurological exam: PRESENT: alert, awake, oriented to person, oriented to place, oriented to time, oriented to situation, CN II-XII grossly intact. ABSENT: motor sensory deficit Psychiatric exam: PRESENT: appropriate affect, normal mood. ABSENT: homicidal ideation, suicidal ideation Skin exam: PRESENT: dry, intact, warm. ABSENT: cyanosis, rash Results Laboratory Results: 08/21/18 13:59 08/21/18 13:59 08/21/18 08/21/18 08/21/18 13:59 13:59 13:59 WBC 1.2 L* RBC 3.60 L Hgb 11.7 L Hct 33.4 L MCV 93 MCH 32.5 MCHC 35.1 RDW 16.6 H Plt Count 106 L Seg Neutrophils % Not Reportable Lymphocytes % Not Reportable Monocytes % Not Reportable Eosinophils % Not Reportable Basophils % Not Reportable Absolute Neutrophils Not Reportable Absolute Lymphocytes Not Reportable Absolute Monocytes Not Reportable Absolute Eosinophils Not Reportable Absolute Basophils Not Reportable Sodium 137.6 Potassium 3.8 Chloride 105 Carbon Dioxide 27 Anion Gap 6 BUN 11 Creatinine 0.58 Est GFR ( Amer) > 60 Est GFR (Non-Af Amer) > 60 Glucose 90 Lactic Acid 1.0 Calcium 10.1 Total Bilirubin 0.6 AST 27 ALT 28 Alkaline Phosphatase 84 Total Protein 7.1 Albumin 3.9 Urine Color Urine Appearance Urine pH Ur Specific [place] Urine Protein Urine Glucose (UA) Urine Ketones Urine Blood Urine Nitrite Ur Leukocyte Esterase Urine WBC (Auto) Urine RBC (Auto) 08/21/18 15:57 WBC RBC Hgb Hct MCV MCH MCHC RDW Plt Count Seg Neutrophils % Lymphocytes % Monocytes % Eosinophils % Basophils % Absolute Neutrophils Absolute Lymphocytes Absolute Monocytes Absolute Eosinophils Absolute Basophils Sodium Potassium Chloride Carbon Dioxide Anion Gap BUN Creatinine Est GFR ( Amer) Est GFR (Non-Af Amer) Glucose Lactic Acid Calcium Total Bilirubin AST ALT Alkaline Phosphatase Total Protein Albumin Urine Color YELLOW Urine Appearance SLIGHTLY-CLOUDY Urine pH 5.0 Ur Specific [place] 1.030 Urine Protein NEGATIVE Urine Glucose (UA) NEGATIVE Urine Ketones NEGATIVE Urine Blood NEGATIVE Urine Nitrite NEGATIVE Ur Leukocyte Esterase TRACE H Urine WBC (Auto) 3 Urine RBC (Auto) 1 Impressions: Chest X-Ray 08/21/18 12:51 IMPRESSION: NO ACUTE RADIOGRAPHIC FINDING IN THE CHEST. Abdomen/Pelvis CT 08/21/18 14:32 IMPRESSION: Uterine fibroids. No acute findings in the abdomen or pelvis. Assessment & Plan - Diagnosis (1) Neutropenic fever Is this a current diagnosis for this admission?: Yes Plan: Patient with neutropenic fever, continue broad-spectrum antibiotics with cefepime until count recovery and ANC is greater than 1000. (2) Stage II breast cancer in female Is this a current diagnosis for this admission?: Yes Plan: Status post cycle number 4 out of 6 cycles. She will require Neulasta on the next cycle. (3) Pancytopenia due to antineoplastic chemotherapy Is this a current diagnosis for this admission?: Yes Plan: Patient initiated on Neupogen 40 mcg daily, will continue until ANC is greater than 2000. Hemoglobin and platelets are stable, we will not transfuse blood unless hemoglobin gets under 8 or platelets unless platelet count gets under 10. - Time Time Spent: Greater than 70 Minutes Disposition: Had a long discussion about this with family and daughter who was on face time. Spent greater than 70 minutes in discussion. - Inpatient Certification Based on my medical assessment, after consideration of the patient's comorbidities, presenting symptoms, or acuity I expect that the services needed warrant INPATIENT care.: Yes I certify that my determination is in accordance with my understanding of Medicare's requirements for reasonable and necessary INPATIENT services [42 CFR 412.3e].: Yes Medical Necessity: Need for IV Antibiotics, Risk of Complication if Not Cared For in Hospital
[2018-08-22 09:26] LABS: ABSOLUTE LYMPHOCYTES (AUTO) 0.8 10^3/uL (0.5-4.7); ABSOLUTE MONOCYTES (AUTO) 0.1 10^3/uL (0.1-1.4); ABSOLUTE NEUT (AUTO) 0.1 10^3/uL (1.7-8.2); EOSINOPHILS % (AUTO) 0.1 % (0-6); HEMATOCRIT 27.6 % (36.0-47.0); LYMPHOCYTES % (AUTO) 78.4 % (13-45); MEAN CORPUSCULAR HEMOGLOBIN 32.4 pg (27.0-33.4); MEAN CORPUSCULAR HGB CONC 34.6 g/dL (32.0-36.0); MEAN CORPUSCULAR VOLUME 94 fl (80-97); MONOCYTES % (AUTO) 14.6 % (3-13); PLATELET COUNT 102 10^3/uL (150-450); RED BLOOD COUNT 2.95 10^6/uL (3.72-5.28); RED CELL DISTRIBUTION WIDTH 16.6 % (11.5-14.0); SEGMENTED NEUTROPHILS % (AUTO) 5.9 % (42-78); TOTAL CELLS COUNTED % (AUTO) 100 %
[2018-08-22] MEDS: VALACYCLOVIR HCL 500 MG TABLET PO SCH ×2 (09:30→18:19)
[2018-08-22] MEDS: FILGRASTIM INJ 480 MCG/1.6 ML VIAL SUBCUT SCH (09:31)
[2018-08-22] MEDS: CEFEPIME HCL 2 GM in DEXTROSE 5%-WATER 50 ML IV SCH ×2 (09:31→18:20)
[2018-08-22 09:44] LABS: PATH REVIEW PATHOLOGIST REVIEWED
[2018-08-22] MEDS ORDERED: CEFEPIME 2 GM/D5W RTU 2 GM/50 ML RTUPB IV SCH (10:00)
[2018-08-22] MEDS ORDERED: METOCLOPRAMIDE HCL INJ/PF 10 MG/2 ML SDV IV SCH (10:00)
[2018-08-22 10:35] LABS: HEMOGLOBIN 9.5 g/dL (12.0-15.5)
[2018-08-22 10:38] LABS: ANISOCYTOSIS 1+; POIKILOCYTOSIS SLIGHT; TEAR DROP CELLS SLIGHT
[2018-08-22 10:39] LABS: OVALOCYTES SLIGHT; PLATELET COMMENT DECREASED
[2018-08-22] MEDS: NORMAL SALINE 1000 ML 1,000 ML IV PRN (11:38)
--- NOTE | 2018-08-22 14:20 | PDOC H&P ---
History of Present Illness Admission Date/PCP: 08/21/18 19:14 YANETAMALIA HAY Patient complains of: Generalized weakness History of Present Illness: KARINA LEE is a 58 year old female known to my practice who was referred to the ED by Dr. Miles, her oncologist, due to concern for neutropenic fever. Patient reported that she was well until about 1 week ago when she participated in shopping activities with her family and subsequently developed nasal and sinus congestion with associated intermittent chills and diaphoresis but no fever. She admitted to nausea, vomiting, poor appetite and po intake due to altered taste. She reported epigastric and left sided abdominal pain but denied diarrhea or constipation. she denied any significant coughing, chest pain or difficulty with breathing. Her initial evaluation in the ED was remarkable for neutropenia without evidence of possible site of infection. Her morbidities include stage 2 breast cancer, currently on weekly chemotherapy regimen, chemotherapy induced neuropathy, recurrent genital herpes simplex, diarrhea, and obesity. Past Medical History Cardiac Medical History: Denies: Coronary Artery Disease, Myocardial Infarction, Hypertension Pulmonary Medical History: Denies: Asthma, Bronchitis, Chronic Obstructive Pulmonary Disease (COPD), Pneumonia Neurological Medical History: Denies: Seizures Malignancy Medical History: Reports: Breast Cancer Musculoskeltal Medical History: Denies: Arthritis Hematology: Denies: Anemia Social History Lives with: Family Smoking Status: Former Smoker Frequency of Alcohol Use: Rare Hx Recreational Drug Use: No Drugs: None Hx Prescription Drug Abuse: No Family History Family History: Reviewed & Not Pertinent Parental Family History Reviewed: Yes Children Family History Reviewed: Yes Sibling(s) Family History Reviewed.: Yes Medication/Allergy Home Medications: Gabapentin [Neurontin 100 mg Capsule] 100 mg PO QHS 08/21/18 Hydrocodone/Acetaminophen [[place] 10-325 Tablet] 1 tab PO Q6HP PRN 08/21/18 Lorazepam [Ativan 0.5 mg Tablet] 0.5 mg PO Q8HP PRN 08/21/18 Valacyclovir HCl [Valtrex 500 mg Tablet] 500 mg PO BID 08/21/18 Allergies/Adverse Reactions: No Known Allergies Allergy (Verified 06/11/18 09:30) Review of Systems Constitutional: PRESENT: chills, fatigue, weakness. ABSENT: as per HPI, anorexia, fever(s), headache(s), night sweats, weight gain, weight loss, other Eyes: ABSENT: visual disturbances Ears: ABSENT: hearing changes Nose, Mouth, and Throat: ABSENT: as per HPI, headache(s), mouth pain, sore throat, vertigo, other Cardiovascular: ABSENT: chest pain, dyspnea on exertion, edema, orthropnea, palpitations Respiratory: ABSENT: cough, hemoptysis Gastrointestinal: PRESENT: abdominal pain, heartburn, nausea, vomiting. ABSENT: as per HPI, bloating, coffee ground emesis, constipation, diarrhea, dysphagia, hematemesis, hematochezia, melena, other Genitourinary: ABSENT: dysuria, hematuria Musculoskeletal: ABSENT: joint swelling Integumentary: ABSENT: rash, wounds Neurological: ABSENT: abnormal gait, abnormal speech, confusion, dizziness, focal weakness, syncope Psychiatric: ABSENT: anxiety, depression, homidical ideation, suicidal ideation Endocrine: ABSENT: cold intolerance, heat intolerance, polydipsia, polyuria Hematologic/Lymphatic: ABSENT: easy bleeding, easy bruising, lymphadenopathy Allergic/Immunologic: ABSENT: seasonal rhinorrhea Physical Exam Vital Signs: Temp Pulse Resp BP Pulse Ox 98.2 F 102 H 16 97/48 L 97 08/22/18 07:25 08/22/18 07:25 08/22/18 07:25 08/22/18 07:25 08/22/18 07:25 Intake & Output 08/21/18 08/22/18 08/23/18 06:59 06:59 06:59 Intake Total 1773 Balance 1773 Weight 84.1 kg General appearance: PRESENT: no acute distress, obese Head exam: PRESENT: atraumatic, normocephalic Eye exam: PRESENT: conjunctiva pink, EOMI, PERRLA. ABSENT: scleral icterus Ear exam: PRESENT: normal external ear exam Mouth exam: PRESENT: moist Throat exam: ABSENT: post pharyngeal erythema, tonsillar erythema, tonsillar exudate, tonsillogmegaly, other Neck exam: PRESENT: full ROM. ABSENT: carotid bruit, JVD, lymphadenopathy, thyromegaly Respiratory exam: PRESENT: clear to auscultation tomas, decreased breath sounds - at lung bases Cardiovascular exam: PRESENT: RRR. ABSENT: diastolic murmur, rubs, systolic murmur Vascular exam: PRESENT: normal capillary refill. ABSENT: pallor GI/Abdominal exam: PRESENT: normal bowel sounds, soft. ABSENT: distended, guarding, mass, organolmegaly, rebound, tenderness Rectal exam: PRESENT: deferred Extremities exam: ABSENT: pedal edema Musculoskeletal exam: ABSENT: tenderness Neurological exam: PRESENT: alert, awake, oriented to person, oriented to place, oriented to time, oriented to situation, CN II-XII grossly intact. ABSENT: motor sensory deficit Psychiatric exam: PRESENT: appropriate affect, normal mood. ABSENT: homicidal i deation, suicidal ideation Skin exam: PRESENT: dry, warm Results Laboratory Results: 08/21/18 13:59 08/21/18 13:59 08/21/18 08/21/18 08/21/18 13:59 13:59 13:59 WBC 1.2 L* RBC 3.60 L Hgb 11.7 L Hct 33.4 L MCV 93 MCH 32.5 MCHC 35.1 RDW 16.6 H Plt Count 106 L Seg Neutrophils % Not Reportable Lymphocytes % Not Reportable Monocytes % Not Reportable Eosinophils % Not Reportable Basophils % Not Reportable Absolute Neutrophils Not Reportable Absolute Lymphocytes Not Reportable Absolute Monocytes Not Reportable Absolute Eosinophils Not Reportable Absolute Basophils Not Reportable Sodium 137.6 Potassium 3.8 Chloride 105 Carbon Dioxide 27 Anion Gap 6 BUN 11 Creatinine 0.58 Est GFR ( Amer) > 60 Est GFR (Non-Af Amer) > 60 Glucose 90 Lactic Acid 1.0 Calcium 10.1 Total Bilirubin 0.6 AST 27 ALT 28 Alkaline Phosphatase 84 Total Protein 7.1 Albumin 3.9 Urine Color Urine Appearance Urine pH Ur Specific [place] Urine Protein Urine Glucose (UA) Urine Ketones Urine Blood Urine Nitrite Ur Leukocyte Esterase Urine WBC (Auto) Urine RBC (Auto) 08/21/18 15:57 WBC RBC Hgb Hct MCV MCH MCHC RDW Plt Count Seg Neutrophils % Lymphocytes % Monocytes % Eosinophils % Basophils % Absolute Neutrophils Absolute Lymphocytes Absolute Monocytes Absolute Eosinophils Absolute Basophils Sodium Potassium Chloride Carbon Dioxide Anion Gap BUN Creatinine Est GFR ( Amer) Est GFR (Non-Af Amer) Glucose Lactic Acid Calcium Total Bilirubin AST ALT Alkaline Phosphatase Total Protein Albumin Urine Color YELLOW Urine Appearance SLIGHTLY-CLOUDY Urine pH 5.0 Ur Specific [place] 1.030 Urine Protein NEGATIVE Urine Glucose (UA) NEGATIVE Urine Ketones NEGATIVE Urine Blood NEGATIVE Urine Nitrite NEGATIVE Ur Leukocyte Esterase TRACE H Urine WBC (Auto) 3 Urine RBC (Auto) 1 Impressions: Chest X-Ray 08/21/18 12:51 IMPRESSION: NO ACUTE RADIOGRAPHIC FINDING IN THE CHEST. Abdomen/Pelvis CT 08/21/18 14:32 IMPRESSION: Uterine fibroids. No acute findings in the abdomen or pelvis. Assessment & Plan - Diagnosis (1) Neutropenic fever Is this a current diagnosis for this admission?: Yes Plan: There is concern for possible occult infection, particularly with her incidental exposure to unprotected shopping environment and URT congestion, subsequent weakness, pancytopenia, and urinalysis. See admitting attending physician orders for details. (2) Pancytopenia due to antineoplastic chemotherapy Is this a current diagnosis for this admission?: Yes Plan: See admitting attending physician orders for details. I will request consultation with Dr. Miles regarding her need for colony stimulating factors therapy. (3) Neuropathy due to chemotherapeutic drug Is this a current diagnosis for this admission?: Yes Plan: See admitting attending physician orders for details. (4) Stage II breast cancer in female Is this a current diagnosis for this admission?: Yes Plan: See admitting attending physician orders for details and as per oncologist input. (5) Recurrent genital herpes simplex Is this a current diagnosis for this admission?: Yes Plan: See admitting attending physician orders for details. - Time Time Spent: 50 to 70 Minutes Medications reviewed and adjusted accordingly: Yes Anticipated discharge: Home with Homehealth Within: Other - Inpatient Certification Based on my medical assessment, after consideration of the patient's comorbidities, presenting symptoms, or acuity I expect that the services needed warrant INPATIENT care.: Yes I certify that my determination is in accordance with my understanding of Medicare's requirements for reasonable and necessary INPATIENT services [42 CFR 412.3e].: Yes Medical Necessity: Significant Comorbidiites Make Outpatient Treatment Too Risky, Need Close Monitoring Due to Risk of Patient Decompensation, Need For IV Fluids, Need for IV Antibiotics, Risk of Complication if Not Cared For in Hospital, Risk of Diagnosis Which Will Require Inpatient Eval/Care/Monitoring Post Hospital Care: D/C [employer] Documentation - Plan Summary Plan Summary: See admitting attending physician orders for details.
[2018-08-22] MEDS: GABAPENTIN 100 MG CAPSULE PO SCH (22:43)
[2018-08-23] MEDS: CEFEPIME HCL 2 GM in DEXTROSE 5%-WATER 50 ML IV SCH ×3 (03:04→17:07)
[2018-08-23] MEDS: NORMAL SALINE 1000 ML 1,000 ML IV PRN (03:04)
[2018-08-23] MEDS: PANTOPRAZOLE SODIUM 20 MG TABLET.DR PO SCH (05:36)
[2018-08-23] MEDS: FILGRASTIM INJ 480 MCG/1.6 ML VIAL SUBCUT SCH (10:32)
[2018-08-23] MEDS: VALACYCLOVIR HCL 500 MG TABLET PO SCH ×2 (10:32→17:07)
--- NOTE | 2018-08-23 11:12 | PDOC PROGRESS REPORT ---
Subjective Progress Note for:: 08/23/18 Subjective:: Patient is currently doing fair Patient with no fever Patient admitted because of neutropenic fever Patient appetite is very poor Reason For Visit: NEUTROPENIC FEVER Physical Exam Vital Signs: Temp Pulse Resp BP Pulse Ox 98.3 F 93 16 119/69 97 08/23/18 07:30 08/23/18 07:30 08/23/18 07:30 08/23/18 07:30 08/23/18 07:30 Intake & Output 08/22/18 08/23/18 08/24/18 06:59 06:59 06:59 Intake Total 1773 3102 Balance 1773 3102 Weight 84.1 kg 87.8 kg General appearance: PRESENT: no acute distress, well-developed, well-nourished Head exam: PRESENT: atraumatic, normocephalic Eye exam: PRESENT: conjunctiva pink, EOMI, PERRLA. ABSENT: scleral icterus Ear exam: PRESENT: normal external ear exam Mouth exam: PRESENT: moist, tongue midline Neck exam: PRESENT: full ROM. ABSENT: carotid bruit, JVD, lymphadenopathy, thyromegaly Respiratory exam: PRESENT: clear to auscultation tomas Cardiovascular exam: PRESENT: RRR. ABSENT: diastolic murmur, rubs, systolic murmur Pulses: PRESENT: normal dorsalis pedis pul, +2 pedal pulses bilateral Vascular exam: PRESENT: normal capillary refill GI/Abdominal exam: PRESENT: normal bowel sounds, soft. ABSENT: distended, guar ding, mass, organolmegaly, rebound, tenderness Rectal exam: PRESENT: deferred Neurological exam: PRESENT: alert, awake, oriented to person, oriented to place, oriented to time, oriented to situation, CN II-XII grossly intact. ABSENT: motor sensory deficit Psychiatric exam: PRESENT: appropriate affect, normal mood. ABSENT: homicidal ideation, suicidal ideation Skin exam: PRESENT: dry, intact, warm. ABSENT: cyanosis, rash Results Laboratory Results: 08/22/18 09:06 08/21/18 13:59 Impressions: Chest X-Ray 08/21/18 12:51 IMPRESSION: NO ACUTE RADIOGRAPHIC FINDING IN THE CHEST. Abdomen/Pelvis CT 08/21/18 14:32 IMPRESSION: Uterine fibroids. No acute findings in the abdomen or pelvis. Assessment & Plan - Diagnosis (1) Neutropenic fever Is this a current diagnosis for this admission?: Yes (2) Neuropathy due to chemotherapeutic drug Is this a current diagnosis for this admission?: Yes (3) Pancytopenia due to antineoplastic chemotherapy Is this a current diagnosis for this admission?: Yes (4) Stage II breast cancer in female Is this a current diagnosis for this admission?: Yes - Time Time Spent with patient: 15-24 minutes Medications reviewed and adjusted accordingly: Yes Anticipated discharge: Home Within: Other - Plan Summary Plan Summary: Continues the broad-spectrum IV antibiotic until the ANC go above 1000 Follow with the oncology
--- NOTE | 2018-08-23 13:20 | PDOC PROGRESS REPORT ---
Subjective Progress Note for:: 08/23/18 Subjective:: Patient looking much better, appetite still poor Reason For Visit: NEUTROPENIC FEVER Physical Exam Vital Signs: Temp Pulse Resp BP Pulse Ox 98.3 F 93 16 119/69 97 08/23/18 07:30 08/23/18 07:30 08/23/18 07:30 08/23/18 07:30 08/23/18 07:30 Intake & Output 08/22/18 08/23/18 08/24/18 06:59 06:59 06:59 Intake Total 1773 3102 Balance 1773 3102 Weight 84.1 kg 87.8 kg General appearance: PRESENT: no acute distress, well-developed, well-nourished Head exam: PRESENT: atraumatic, normocephalic Eye exam: PRESENT: conjunctiva pink, EOMI, PERRLA. ABSENT: scleral icterus Ear exam: PRESENT: normal external ear exam Mouth exam: PRESENT: moist, tongue midline Neck exam: ABSENT: carotid bruit, JVD, lymphadenopathy, thyromegaly Respiratory exam: PRESENT: clear to auscultation tomas. ABSENT: rales, rhonchi, wheezes Cardiovascular exam: PRESENT: RRR. ABSENT: diastolic murmur, rubs, systolic murmur Pulses: PRESENT: normal dorsalis pedis pul Vascular exam: PRESENT: normal capillary refill GI/Abdominal exam: PRESENT: normal bowel sounds, soft. ABSENT: distended, guarding, mass, organolmegaly, rebound, tenderness Rectal exam: PRESENT: deferred Extremities exam: PRESENT: full ROM. ABSENT: calf tenderness, clubbing, pedal edema Neurological exam: PRESENT: alert, awake, oriented to person, oriented to place, oriented to time, oriented to situation, CN II-XII grossly intact. ABSENT: motor sensory deficit Psychiatric exam: PRESENT: appropriate affect, normal mood. ABSENT: homicidal ideation, suicidal ideation Skin exam: PRESENT: dry, intact, warm. ABSENT: cyanosis, rash Results Laboratory Results: 08/22/18 09:06 08/21/18 13:59 Impressions: Chest X-Ray 08/21/18 12:51 IMPRESSION: NO ACUTE RADIOGRAPHIC FINDING IN THE CHEST. Abdomen/Pelvis CT 08/21/18 14:32 IMPRESSION: Uterine fibroids. No acute findings in the abdomen or pelvis. Assessment & Plan - Diagnosis (1) Neutropenic fever Is this a current diagnosis for this admission?: Yes Plan: Fever resolved but patient still neutropenic, continue with Neupogen, continue with broad-spectrum antibiotics until ANC is greater than 1000. (2) Stage II breast cancer in female Is this a current diagnosis for this admission?: Yes Plan: Plan to continue chemotherapy as an outpatient (3) Pancytopenia due to antineoplastic chemotherapy Is this a current diagnosis for this admission?: Yes Plan: Hemoglobin still stable, no need to transfuse unless gets under 7. Continue with Neupogen daily until ANC is greater than thousand. - Time Time Spent with patient: 35 or more minutes - Inpatient Certification Based on my medical assessment, after consideration of the patient's comorbidities, presenting symptoms, or acuity I expect that the services needed warrant INPATIENT care.: Yes I certify that my determination is in accordance with my understanding of Medicare's requirements for reasonable and necessary INPATIENT services [42 CFR 412.3e].: Yes Medical Necessity: Need for IV Antibiotics
[2018-08-23] MEDS: GABAPENTIN 100 MG CAPSULE PO SCH (21:50)
[2018-08-24] MEDS: NORMAL SALINE 1000 ML 1,000 ML IV PRN ×2 (00:36→16:42)
[2018-08-24] MEDS: CEFEPIME HCL 2 GM in DEXTROSE 5%-WATER 50 ML IV SCH ×3 (01:41→18:19)
[2018-08-24] MEDS: PANTOPRAZOLE SODIUM 20 MG TABLET.DR PO SCH (06:11)
[2018-08-24 07:24] LABS: HEMATOCRIT 28.3 % (36.0-47.0); HEMOGLOBIN 9.9 g/dL (12.0-15.5); MEAN CORPUSCULAR HEMOGLOBIN 33.1 pg (27.0-33.4); MEAN CORPUSCULAR HGB CONC 35.1 g/dL (32.0-36.0); MEAN CORPUSCULAR VOLUME 94 fl (80-97); PLATELET COUNT 118 10^3/uL (150-450); RED CELL DISTRIBUTION WIDTH 16.9 % (11.5-14.0)
[2018-08-24 07:26] LABS: ANION GAP 6 (5-19); BLOOD UREA NITROGEN 6 mg/dL (7-20); CALCIUM 8.4 mg/dL (8.4-10.2); CARBON DIOXIDE 25 mmol/L (22-30); CHLORIDE 110 mmol/L (98-107); GLUCOSE 82 mg/dL (75-110); POTASSIUM 3.4 mmol/L (3.6-5.0)
[2018-08-24 07:59] LABS: WHITE BLOOD COUNT 2.4 10^3/uL (4.0-10.5)
[2018-08-24 08:12] LABS: BASOPHILS % (MANUAL) 1 % (0-2); EOSINOPHILS % (MANUAL) 0 % (0-6); METAMYELOCYTES % (MANUAL) 1 % (0); TOTAL CELLS COUNTED 100
[2018-08-24 08:17] LABS: ANISOCYTOSIS 1+; PLATELET COMMENT DECREASED; POLYCHROMASIA SLIGHT
[2018-08-24 08:25] LABS: ABSOLUTE LYMPHOCYTES# (MANUAL) 1.4 10^3/uL (0.5-4.7); ABSOLUTE MONOCYTES # (MANUAL) 0.5 10^3/uL (0.1-1.4); ABSOLUTE NEUTROPHILS# (MANUAL) 0.5 10^3/uL (1.7-8.2); LYMPHOCYTES % (MANUAL) 60 % (13-45); MONOCYTES % (MANUAL) 20 % (3-13); NUCLEATED RED BLOOD CELLS 3 /100 WBC (0); SEGMENTED NEUTROPHILS % (MAN) 18 % (42-78)
[2018-08-24 08:27] LABS: OVALOCYTES SLIGHT; POIKILOCYTOSIS SLIGHT
[2018-08-24] MEDS: VALACYCLOVIR HCL 500 MG TABLET PO SCH ×2 (09:14→18:19)
[2018-08-24] MEDS: FILGRASTIM INJ 480 MCG/1.6 ML VIAL SUBCUT SCH (09:15)
[2018-08-24] MEDS ORDERED: POTASSIUM CHLORIDE 20 MEQ PACKET PO ONE (09:30)
--- NOTE | 2018-08-24 10:35 | PDOC PROGRESS REPORT ---
Subjective Progress Note for:: 08/24/18 Subjective:: Patient is currently doing fair Patient with no fever Patient admitted because of neutropenic fever Patient appetite is very poor Since do not like taking Neupogen injections because of the needle issues Patient is white count is improving Patient is also complained of right ankle swelling and the pain Reason For Visit: NEUTROPENIC FEVER Physical Exam Vital Signs: Temp Pulse Resp BP Pulse Ox 97.6 F 102 H 18 108/53 L 98 08/24/18 07:55 08/24/18 07:55 08/24/18 07:55 08/24/18 07:55 08/24/18 07:55 Intake & Output 08/23/18 08/24/18 08/25/18 06:59 06:59 06:59 Intake Total 3102 3528 Balance 3102 3528 Weight 87.8 kg 85.3 kg General appearance: PRESENT: no acute distress, well-developed, well-nourished Head exam: PRESENT: atraumatic, normocephalic Eye exam: PRESENT: conjunctiva pink, EOMI, PERRLA. ABSENT: scleral icterus Ear exam: PRESENT: normal external ear exam Mouth exam: PRESENT: moist, tongue midline Neck exam: PRESENT: full ROM. ABSENT: carotid bruit, JVD, lymphadenopathy, thyromegaly Respiratory exam: PRESENT: clear to auscultation tomas Cardiovascular exam: PRESENT: RRR. ABSENT: diastolic murmur, rubs, systolic mu rmur Vascular exam: PRESENT: normal capillary refill GI/Abdominal exam: PRESENT: normal bowel sounds, soft. ABSENT: distended, guarding, mass, organolmegaly, rebound, tenderness Rectal exam: PRESENT: deferred Extremities exam: ABSENT: pedal edema Additional comments: Right ankle patient was some mild tenderness on the lateral malleolus Musculoskeletal exam: PRESENT: ambulatory Neurological exam: PRESENT: alert, awake, oriented to person, oriented to place, oriented to time, oriented to situation, CN II-XII grossly intact. ABSENT: motor sensory deficit Psychiatric exam: PRESENT: appropriate affect, normal mood. ABSENT: homicidal ideation, suicidal ideation Skin exam: PRESENT: dry, intact, warm. ABSENT: cyanosis, rash Results Laboratory Results: 08/24/18 06:13 08/24/18 06:13 08/24/18 08/24/18 06:13 06:13 WBC 2.4 L D RBC 3.00 L Hgb 9.9 L Hct 28.3 L MCV 94 MCH 33.1 MCHC 35.1 RDW 16.9 H Plt Count 118 L Seg Neutrophils % Not Reportable Lymphocytes % Not Reportable Monocytes % Not Reportable Eosinophils % Not Reportable Basophils % Not Reportable Absolute Neutrophils Not Reportable Absolute Lymphocytes Not Reportable Absolute Monocytes Not Reportable Absolute Eosinophils Not Reportable Absolute Basophils Not Reportable Sodium 141.0 Potassium 3.4 L Chloride 110 H Carbon Dioxide 25 Anion Gap 6 BUN 6 L Creatinine 0.61 Est GFR ( Amer) > 60 Est GFR (Non-Af Amer) > 60 Glucose 82 Calcium 8.4 08/21/18 15:57 Clean Catch Midstream Urine Culture - Final Mixed Urogenital Bernadette Impressions: Chest X-Ray 08/21/18 12:51 IMPRESSION: NO ACUTE RADIOGRAPHIC FINDING IN THE CHEST. Abdomen/Pelvis CT 08/21/18 14:32 IMPRESSION: Uterine fibroids. No acute findings in the abdomen or pelvis. Assessment & Plan - Diagnosis (1) Neutropenic fever Is this a current diagnosis for this admission?: Yes (2) Neuropathy due to chemotherapeutic drug Is this a current diagnosis for this admission?: Yes (3) Pancytopenia due to antineoplastic chemotherapy Is this a current diagnosis for this admission?: Yes (4) Stage II breast cancer in female Is this a current diagnosis for this admission?: Yes - Time Time Spent with patient: 15-24 minutes Medications reviewed and adjusted accordingly: Yes Anticipated discharge: Home Within: Other - Plan Summary Plan Summary: Will order the right ankle x-ray Get the ankle splint Continues to current medications
--- NOTE | 2018-08-24 11:16 | PDOC PROGRESS REPORT ---
Subjective Progress Note for:: 08/24/18 Subjective:: Patient doing well, no new complaints Reason For Visit: NEUTROPENIC FEVER Physical Exam Vital Signs: Temp Pulse Resp BP Pulse Ox 97.6 F 102 H 18 108/53 L 98 08/24/18 07:55 08/24/18 07:55 08/24/18 07:55 08/24/18 07:55 08/24/18 07:55 Intake & Output 08/23/18 08/24/18 08/25/18 06:59 06:59 06:59 Intake Total 3102 3528 Balance 3102 3528 Weight 87.8 kg 85.3 kg General appearance: PRESENT: no acute distress, well-developed, well-nourished Head exam: PRESENT: atraumatic, normocephalic Eye exam: PRESENT: conjunctiva pink, EOMI, PERRLA. ABSENT: scleral icterus Ear exam: PRESENT: normal external ear exam Mouth exam: PRESENT: moist, tongue midline Neck exam: ABSENT: carotid bruit, JVD, lymphadenopathy, thyromegaly Respiratory exam: PRESENT: clear to auscultation tomas. ABSENT: rales, rhonchi, wheezes Cardiovascular exam: PRESENT: RRR. ABSENT: diastolic murmur, rubs, systolic murmur Pulses: PRESENT: normal dorsalis pedis pul Vascular exam: PRESENT: normal capillary refill GI/Abdominal exam: PRESENT: normal bowel sounds, soft. ABSENT: distended, guarding, mass, organolmegaly, rebound, tenderness Rectal exam: PRESENT: deferred Extremities exam: PRESENT: full ROM. ABSENT: calf tenderness, clubbing, pedal edema Neurological exam: PRESENT: alert, awake, oriented to person, oriented to place, oriented to time, oriented to situation, CN II-XII grossly intact. ABSENT: motor sensory deficit Psychiatric exam: PRESENT: appropriate affect, normal mood. ABSENT: homicidal ideation, suicidal ideation Skin exam: PRESENT: dry, intact, warm. ABSENT: cyanosis, rash Results Laboratory Results: 08/24/18 06:13 08/24/18 06:13 08/24/18 08/24/18 06:13 06:13 WBC 2.4 L D RBC 3.00 L Hgb 9.9 L Hct 28.3 L MCV 94 MCH 33.1 MCHC 35.1 RDW 16.9 H Plt Count 118 L Seg Neutrophils % Not Reportable Lymphocytes % Not Reportable Monocytes % Not Reportable Eosinophils % Not Reportable Basophils % Not Reportable Absolute Neutrophils Not Reportable Absolute Lymphocytes Not Reportable Absolute Monocytes Not Reportable Absolute Eosinophils Not Reportable Absolute Basophils Not Reportable Sodium 141.0 Potassium 3.4 L Chloride 110 H Carbon Dioxide 25 Anion Gap 6 BUN 6 L Creatinine 0.61 Est GFR ( Amer) > 60 Est GFR (Non-Af Amer) > 60 Glucose 82 Calcium 8.4 08/21/18 15:57 Clean Catch Midstream Urine Culture - Final Mixed Urogenital Bernadette Impressions: Chest X-Ray 08/21/18 12:51 IMPRESSION: NO ACUTE RADIOGRAPHIC FINDING IN THE CHEST. Abdomen/Pelvis CT 08/21/18 14:32 IMPRESSION: Uterine fibroids. No acute findings in the abdomen or pelvis. Assessment & Plan - Diagnosis (1) Neutropenic fever Is this a current diagnosis for this admission?: Yes Plan: No further fever but still needs Neupogen until ANC greater than 1000. Once ANC greater than 1000, discontinue IV antibiotic and send patient home on oral antibiotic. Follow-up in our office thereafter. will be taking over tomorrow (2) Stage II breast cancer in female Is this a current diagnosis for this admission?: Yes Plan: Further chemotherapy planned as an outpatient, will need to give Neulasta with next treatment. (3) Pancytopenia due to antineoplastic chemotherapy Is this a current diagnosis for this admission?: Yes Plan: Improving, continue to monitor
--- NOTE | 2018-08-24 12:41 | RADIOLOGY REPORT (SQ) ---
EXAM DESCRIPTION: ANKLE RIGHT AP/LATERAL COMPLETED DATE/TIME: 08/24/2018 11:57 am REASON FOR STUDY: Ankle pain and swelling COMPARISON: None. NUMBER OF VIEWS: Two views right ankle: LIMITATIONS: None. FINDINGS: Soft tissue swelling generally without underlying fracture or radiopaque foreign body. OTHER: No other significant finding. IMPRESSION: Soft tissue swelling. TECHNICAL DOCUMENTATION: JOB ID: [id number] Reading location - IP/workstation name: [email or web address]
[2018-08-24] MEDS: GABAPENTIN 100 MG CAPSULE PO SCH (22:49)
[2018-08-25] MEDS: CEFEPIME HCL 2 GM in DEXTROSE 5%-WATER 50 ML IV SCH ×3 (02:16→19:02)
[2018-08-25] MEDS: PANTOPRAZOLE SODIUM 20 MG TABLET.DR PO SCH (05:38)
[2018-08-25 06:28] LABS: ANION GAP 6 (5-19); BLOOD UREA NITROGEN 5 mg/dL (7-20); CALCIUM 9.1 mg/dL (8.4-10.2); CARBON DIOXIDE 26 mmol/L (22-30); CHLORIDE 108 mmol/L (98-107); GLUCOSE 86 mg/dL (75-110); POTASSIUM 3.8 mmol/L (3.6-5.0); SODIUM 139.9 mmol/L (137-145)
--- NOTE | 2018-08-25 07:57 | PDOC PROGRESS REPORT ---
Subjective Progress Note for:: 08/25/18 Subjective:: No fever of chills. No nausea, vomiting, or abdominal pain. No chest pain or difficulty with breathing. Reason For Visit: NEUTROPENIC FEVER Physical Exam Vital Signs: Temp Pulse Resp BP Pulse Ox 97.9 F 89 18 104/53 L 100 08/24/18 23:25 08/24/18 23:25 08/24/18 23:25 08/24/18 23:25 08/24/18 23:25 Intake & Output 08/24/18 08/25/18 08/26/18 06:59 06:59 06:59 Intake Total 3528 2200 Balance 3528 2200 Weight 85.3 kg 86.2 kg General appearance: PRESENT: no acute distress, well-developed, well-nourished Head exam: PRESENT: atraumatic, normocephalic Eye exam: PRESENT: conjunctiva pink. ABSENT: scleral icterus Ear exam: PRESENT: normal external ear exam Mouth exam: PRESENT: moist Respiratory exam: PRESENT: clear to auscultation tomas Cardiovascular exam: PRESENT: RRR. ABSENT: diastolic murmur, rubs, systolic murmur Vascular exam: ABSENT: pallor GI/Abdominal exam: PRESENT: normal bowel sounds, soft. ABSENT: distended, guarding, mass, organolmegaly, rebound, tenderness Extremities exam: ABSENT: pedal edema Neurological exam: PRESENT: alert, awake, oriented to person, oriented to place, oriented to time, oriented to situation, CN II-XII grossly intact. ABSENT: motor sensory deficit Psychiatric exam: PRESENT: appropriate affect, normal mood. ABSENT: homicidal ideation, suicidal ideation Skin exam: PRESENT: dry, warm Results Laboratory Results: 08/24/18 06:13 08/25/18 05:36 08/24/18 08/25/18 06:13 05:36 WBC 2.4 L D RBC 3.00 L Hgb 9.9 L Hct 28.3 L MCV 94 MCH 33.1 MCHC 35.1 RDW 16.9 H Plt Count 118 L Seg Neutrophils % Not Reportable Lymphocytes % Not Reportable Monocytes % Not Reportable Eosinophils % Not Reportable Basophils % Not Reportable Absolute Neutrophils Not Reportable Absolute Lymphocytes Not Reportable Absolute Monocytes Not Reportable Absolute Eosinophils Not Reportable Absolute Basophils Not Reportable Sodium 139.9 Potassium 3.8 Chloride 108 H Carbon Dioxide 26 Anion Gap 6 BUN 5 L Creatinine 0.54 Est GFR ( Amer) > 60 Est GFR (Non-Af Amer) > 60 Glucose 86 Calcium 9.1 Impressions: Chest X-Ray 08/21/18 12:51 IMPRESSION: NO ACUTE RADIOGRAPHIC FINDING IN THE CHEST. Abdomen/Pelvis CT 08/21/18 14:32 IMPRESSION: Uterine fibroids. No acute findings in the abdomen or pelvis. Ankle X-Ray 08/24/18 00:00 IMPRESSION: Soft tissue swelling. 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 Is this a current diagnosis for this admission?: Yes (4) Stage II breast cancer in female Is this a current diagnosis for this admission?: Yes (5) Recurrent genital herpes simplex Is this a current diagnosis for this admission?: Yes - Time Time Spent with patient: 25-34 minutes Medications reviewed and adjusted accordingly: Yes Anticipated discharge: Home Within: Other - Inpatient Certification Based on my medical assessment, after consideration of the patient's comorbidities, presenting symptoms, or acuity I expect that the services needed warrant INPATIENT care.: Yes I certify that my determination is in accordance with my understanding of Medicare's requirements for reasonable and necessary INPATIENT services [42 CFR 412.3e].: Yes Medical Necessity: Significant Comorbidiites Make Outpatient Treatment Too Risky, Need Close Monitoring Due to Risk of Patient Decompensation, Need For IV Fluids, Need for IV Antibiotics, Risk of Complication if Not Cared For in Hospital, Risk of Diagnosis Which Will Require Inpatient Eval/Care/Monitoring Post Hospital Care: D/C Foundation Director Documentation - Plan Summary Plan Summary: Continue current antibiotic empiric coverage. Follow up on culture findings. Continue reverse isolation for neutropenic status.
[2018-08-25] MEDS: FILGRASTIM INJ 480 MCG/1.6 ML VIAL SUBCUT SCH (13:19)
[2018-08-25] MEDS: VALACYCLOVIR HCL 500 MG TABLET PO SCH ×2 (13:19→19:02)
--- NOTE | 2018-08-25 14:06 | PDOC PROGRESS REPORT ---
Subjective Progress Note for:: 08/25/18 Subjective:: Patient states that she has been feeling fine. However, she is disappointed that her door has been kept open and her room has not been sanitized since she has been admitted. She is greatly worried about her immunocompromised state. ROS: No dyspnea. good appetite. no diarrhea. Reason For Visit: NEUTROPENIC FEVER Physical Exam Vital Signs: Temp Pulse Resp BP Pulse Ox 98.1 F 105 H 16 131/73 H 100 08/25/18 11:41 08/25/18 11:41 08/25/18 11:41 08/25/18 11:41 08/25/18 11:41 Intake & Output 08/24/18 08/25/18 08/26/18 06:59 06:59 06:59 Intake Total 3528 2200 Balance 3528 2200 Weight 85.3 kg 86.2 kg General appearance: PRESENT: well-developed, well-nourished Head exam: PRESENT: normocephalic Respiratory exam: PRESENT: unlabored Neurological exam: PRESENT: alert, awake Psychiatric exam: PRESENT: appropriate affect Skin exam: PRESENT: normal color Results Laboratory Results: 08/24/18 06:13 08/25/18 05:36 08/25/18 05:36 Sodium 139.9 Potassium 3.8 Chloride 108 H Carbon Dioxide 26 Anion Gap 6 BUN 5 L Creatinine 0.54 Est GFR ( Amer) > 60 Est GFR (Non-Af Amer) > 60 Glucose 86 Calcium 9.1 Impressions: Chest X-Ray 08/21/18 12:51 IMPRESSION: NO ACUTE RADIOGRAPHIC FINDING IN THE CHEST. Abdomen/Pelvis CT 08/21/18 14:32 IMPRESSION: Uterine fibroids. No acute findings in the abdomen or pelvis. Ankle X-Ray 08/24/18 00:00 IMPRESSION: Soft tissue swelling. Assessment & Plan - Diagnosis (1) Neutropenic fever Is this a current diagnosis for this admission?: Yes Plan: Slowly resolving. Her ANC is only 500. She is no longer febrile. Cultures have been unremarkable. She continues on Cefapime and neupogen. (2) Stage II breast cancer in female Is this a current diagnosis for this admission?: Yes Plan: On chemo. Will plan next cycle after she recovers from the neutropenia. - Plan Summary Plan Summary: No indication for transfusion at present. Will continue to watch.
[2018-08-25] MEDS: NYSTATIN CREAM 15 GM TP SCH (19:03)
[2018-08-25] MEDS: NORMAL SALINE 1000 ML 1,000 ML IV PRN (20:04)
[2018-08-25] MEDS: GABAPENTIN 100 MG CAPSULE PO SCH (21:53)
[2018-08-26] MEDS: CEFEPIME HCL 2 GM in DEXTROSE 5%-WATER 50 ML IV SCH ×3 (02:07→19:11)
[2018-08-26] MEDS: PANTOPRAZOLE SODIUM 20 MG TABLET.DR PO SCH (05:35)
[2018-08-26 06:22] LABS: HEMATOCRIT 26.9 % (36.0-47.0); HEMOGLOBIN 9.2 g/dL (12.0-15.5); MEAN CORPUSCULAR HEMOGLOBIN 32.4 pg (27.0-33.4); MEAN CORPUSCULAR HGB CONC 34.1 g/dL (32.0-36.0); MEAN CORPUSCULAR VOLUME 95 fl (80-97); PLATELET COUNT 119 10^3/uL (150-450); RED BLOOD COUNT 2.83 10^6/uL (3.72-5.28); RED CELL DISTRIBUTION WIDTH 17.8 % (11.5-14.0)
[2018-08-26 06:31] LABS: WHITE BLOOD COUNT 15.8 10^3/uL (4.0-10.5)
[2018-08-26 06:39] LABS: BLOOD UREA NITROGEN 7 mg/dL (7-20); CALCIUM 9.4 mg/dL (8.4-10.2); GLUCOSE 83 mg/dL (75-110); POTASSIUM 3.8 mmol/L (3.6-5.0)
[2018-08-26 06:44] LABS: CARBON DIOXIDE 29 mmol/L (22-30); CHLORIDE 109 mmol/L (98-107); SODIUM 139.9 mmol/L (137-145)
[2018-08-26 06:49] LABS: ANION GAP 2 (5-19)
[2018-08-26 06:58] LABS: ABSOLUTE LYMPHOCYTES# (MANUAL) 3.6 10^3/uL (0.5-4.7); ABSOLUTE MONOCYTES # (MANUAL) 2.4 10^3/uL (0.1-1.4); ABSOLUTE NEUTROPHILS# (MANUAL) 9.8 10^3/uL (1.7-8.2); BAND NEUTROPHILS % (MANUAL) 1 % (3-5); BASOPHILS % (MANUAL) 0 % (0-2); EOSINOPHILS % (MANUAL) 0 % (0-6); LYMPHOCYTES % (MANUAL) 21 % (13-45); METAMYELOCYTES % (MANUAL) 1 % (0); MONOCYTES % (MANUAL) 15 % (3-13); NUCLEATED RED BLOOD CELLS 1 /100 WBC (0); SEGMENTED NEUTROPHILS % (MAN) 60 % (42-78); TOTAL CELLS COUNTED 100
[2018-08-26 07:02] LABS: ANISOCYTOSIS 1+; POIKILOCYTOSIS 1+; POLYCHROMASIA SLIGHT; TOXIC GRANULATION 1+
[2018-08-26 07:03] LABS: OVALOCYTES 1+; PLATELET COMMENT ADEQUATE; TEAR DROP CELLS SLIGHT
--- NOTE | 2018-08-26 07:43 | PDOC PROGRESS REPORT ---
Subjective Progress Note for:: 08/26/18 Subjective:: No fever of chills. No chest pain or difficulty with breathing. No nausea, vomiting, or abdominal pain. Reason For Visit: NEUTROPENIC FEVER Physical Exam Vital Signs: Temp Pulse Resp BP Pulse Ox 97.9 F 102 H 16 112/61 100 08/25/18 20:02 08/25/18 20:02 08/25/18 20:02 08/25/18 20:02 08/25/18 20:02 Intake & Output 08/25/18 08/26/18 08/27/18 06:59 06:59 06:59 Intake Total 3200 1420 Balance 3200 1420 Weight 86.2 kg 87.2 kg Physical Exam: General appearance: PRESENT: no acute distress, well-developed, well-nourished Head exam: PRESENT: atraumatic, normocephalic Eye exam: PRESENT: conjunctiva pink. ABSENT: pallor, scleral icterus Ear exam: PRESENT: normal external ear exam Mouth exam: PRESENT: moist Respiratory exam: PRESENT: clear to auscultation bilateral Cardiovascular exam: PRESENT: RRR. ABSENT: diastolic murmur, rubs, systolic murmur GI/Abdominal exam: PRESENT: normal bowel sounds, soft. ABSENT: distended, guarding, mass, organomegaly, rebound, tenderness Extremities exam: ABSENT: pedal edema Neurological exam: PRESENT: alert, awake, oriented to person, oriented to place, oriented to time, oriented to situation, CN II-XII grossly intact. ABSENT: motor sensory deficit Psychiatric exam: PRESENT: appropriate affect, normal mood. ABSENT: homicidal ideation, suicidal ideation Skin exam: PRESENT: dry, warm Results Laboratory Results: 08/26/18 05:25 08/26/18 05:25 08/26/18 08/26/18 05:25 05:25 WBC 15.8 H D RBC 2.83 L Hgb 9.2 L Hct 26.9 L MCV 95 MCH 32.4 MCHC 34.1 RDW 17.8 H Plt Count 119 L Seg Neutrophils % Not Reportable Lymphocytes % Not Reportable Monocytes % Not Reportable Eosinophils % Not Reportable Basophils % Not Reportable Absolute Neutrophils Not Reportable Absolute Lymphocytes Not Reportable Absolute Monocytes Not Reportable Absolute Eosinophils Not Reportable Absolute Basophils Not Reportable Sodium 139.9 Potassium 3.8 Chloride 109 H Carbon Dioxide 29 Anion Gap 2 L BUN 7 Creatinine 0.55 Est GFR ( Amer) > 60 Est GFR (Non-Af Amer) > 60 Glucose 83 Calcium 9.4 Impressions: Chest X-Ray 08/21/18 12:51 IMPRESSION: NO ACUTE RADIOGRAPHIC FINDING IN THE CHEST. Abdomen/Pelvis CT 08/21/18 14:32 IMPRESSION: Uterine fibroids. No acute findings in the abdomen or pelvis. Ankle X-Ray 08/24/18 00:00 IMPRESSION: Soft tissue swelling. 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 Is this a current diagnosis for this admission?: Yes (4) Stage II breast cancer in female Is this a current diagnosis for this admission?: Yes (5) Recurrent genital herpes simplex Is this a current diagnosis for this admission?: Yes - Time Time Spent with patient: 25-34 minutes Medications reviewed and adjusted accordingly: Yes Anticipated discharge: Home - Inpatient Certification Based on my medical assessment, after consideration of the patient's comorbidities, presenting symptoms, or acuity I expect that the services needed warrant INPATIENT care.: Yes I certify that my determination is in accordance with my understanding of Medicare's requirements for reasonable and necessary INPATIENT services [42 CFR 412.3e].: Yes Medical Necessity: Significant Comorbidiites Make Outpatient Treatment Too Risky, Need Close Monitoring Due to Risk of Patient Decompensation, Risk of Complication if Not Cared For in Hospital, Risk of Diagnosis Which Will Require Inpatient Eval/Care/Monitoring Post Hospital Care: D/C Offset Pressman Documentation - Plan Summary Plan Summary: Continue current medication management. Possible d/c colony stimulating agent today. If clinically stable, she is agreeable to d/c tomorrow.
[2018-08-26] MEDS: FILGRASTIM INJ 480 MCG/1.6 ML VIAL SUBCUT SCH (09:49)
[2018-08-26] MEDS: VALACYCLOVIR HCL 500 MG TABLET PO SCH ×2 (09:52→19:16)
[2018-08-26] MEDS: NYSTATIN CREAM 15 GM TP SCH ×2 (09:57→19:12)
--- NOTE | 2018-08-26 14:12 | PDOC PROGRESS REPORT ---
Subjective Progress Note for:: 08/26/18 Subjective:: Patient was seen on morning rounds. She is without new complaints. Family is also at bedside. Reason For Visit: NEUTROPENIC FEVER Physical Exam Vital Signs: Temp Pulse Resp BP Pulse Ox 97.7 F 91 16 100/62 100 08/26/18 11:17 08/26/18 11:17 08/26/18 11:17 08/26/18 11:17 08/26/18 11:17 Intake & Output 08/25/18 08/26/18 08/27/18 06:59 06:59 06:59 Intake Total 3200 1420 Balance 3200 1420 Weight 86.2 kg 87.2 kg General appearance: PRESENT: obese Head exam: PRESENT: normocephalic Respiratory exam: PRESENT: unlabored Neurological exam: PRESENT: alert, awake Psychiatric exam: PRESENT: appropriate affect Results Laboratory Results: 08/26/18 05:25 08/26/18 05:25 08/26/18 08/26/18 05:25 05:25 WBC 15.8 H D RBC 2.83 L Hgb 9.2 L Hct 26.9 L MCV 95 MCH 32.4 MCHC 34.1 RDW 17.8 H Plt Count 119 L Seg Neutrophils % Not Reportable Lymphocytes % Not Reportable Monocytes % Not Reportable Eosinophils % Not Reportable Basophils % Not Reportable Absolute Neutrophils Not Reportable Absolute Lymphocytes Not Reportable Absolute Monocytes Not Reportable Absolute Eosinophils Not Reportable Absolute Basophils Not Reportable Sodium 139.9 Potassium 3.8 Chloride 109 H Carbon Dioxide 29 Anion Gap 2 L BUN 7 Creatinine 0.55 Est GFR ( Amer) > 60 Est GFR (Non-Af Amer) > 60 Glucose 83 Calcium 9.4 08/21/18 13:59 Blood Blood Culture - Final NO GROWTH IN 5 DAYS Impressions: Chest X-Ray 08/21/18 12:51 IMPRESSION: NO ACUTE RADIOGRAPHIC FINDING IN THE CHEST. Abdomen/Pelvis CT 08/21/18 14:32 IMPRESSION: Uterine fibroids. No acute findings in the abdomen or pelvis. Ankle X-Ray 08/24/18 00:00 IMPRESSION: Soft tissue swelling. Assessment & Plan - Diagnosis (1) Neutropenic fever Is this a current diagnosis for this admission?: Yes Plan: Now resolved. No further Neupogen injections. Continue antibiotics as outpatient for about 5-7 more days. (2) Stage II breast cancer in female Is this a current diagnosis for this admission?: Yes Plan: Treatment on hold for now. Will discuss further next week. - Plan Summary Plan Summary: OK for discharge from out standpoint. Will follow-up in office.
[2018-08-26] MEDS: NORMAL SALINE 1000 ML 1,000 ML IV PRN (20:50)
[2018-08-26] MEDS: GABAPENTIN 100 MG CAPSULE PO SCH (22:19)
[2018-08-27] MEDS: CEFEPIME HCL 2 GM in DEXTROSE 5%-WATER 50 ML IV SCH ×3 (02:06→18:23)
[2018-08-27] MEDS: PANTOPRAZOLE SODIUM 20 MG TABLET.DR PO SCH (05:06)
[2018-08-27 05:31] LABS: HEMATOCRIT 26.7 % (36.0-47.0); HEMOGLOBIN 9.2 g/dL (12.0-15.5); MEAN CORPUSCULAR HEMOGLOBIN 32.7 pg (27.0-33.4); MEAN CORPUSCULAR HGB CONC 34.5 g/dL (32.0-36.0); MEAN CORPUSCULAR VOLUME 95 fl (80-97); PLATELET COUNT 116 10^3/uL (150-450); RED BLOOD COUNT 2.81 10^6/uL (3.72-5.28); RED CELL DISTRIBUTION WIDTH 18.2 % (11.5-14.0); WHITE BLOOD COUNT 16.3 10^3/uL (4.0-10.5)
[2018-08-27 06:38] LABS: ABSOLUTE LYMPHOCYTES# (MANUAL) 2.8 10^3/uL (0.5-4.7); ABSOLUTE NEUTROPHILS# (MANUAL) 11.6 10^3/uL (1.7-8.2); BAND NEUTROPHILS % (MANUAL) 3 % (3-5); BASOPHILS % (MANUAL) 0 % (0-2); EOSINOPHILS % (MANUAL) 0 % (0-6); LYMPHOCYTES % (MANUAL) 17 % (13-45); MONOCYTES % (MANUAL) 12 % (3-13); SEGMENTED NEUTROPHILS % (MAN) 68 % (42-78); TOTAL CELLS COUNTED 100
[2018-08-27 06:39] LABS: ANISOCYTOSIS 2+; HYPOCHROMASIA 2+; PLATELET COMMENT ADEQUATE; POLYCHROMASIA 1+
[2018-08-27] MEDS: FILGRASTIM INJ 480 MCG/1.6 ML VIAL SUBCUT SCH (09:15)
[2018-08-27] MEDS: NYSTATIN CREAM 15 GM TP SCH ×2 (09:16→18:22)
[2018-08-27] MEDS: VALACYCLOVIR HCL 500 MG TABLET PO SCH ×2 (09:17→17:37)
--- NOTE | 2018-08-27 18:32 | PDOC DISCHARGE SUMMARY ---
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 Is this a current diagnosis for this admission?: Yes (4) Stage II breast cancer in female Is this a current diagnosis for this admission?: Yes (5) Recurrent genital herpes simplex Is this a current diagnosis for this admission?: Yes - Additional Information Resuscitation Status: Full Code Prescriptions: Nystatin [Mycostatin Cream 15 gm] 1 applic TP BID #1 tube Home Medications: Gabapentin [Neurontin 100 mg Capsule] 100 mg PO QHS 08/21/18 Hydrocodone/Acetaminophen [[place]ster 10-325 Tablet] 1 tab PO Q6HP PRN 08/21/18 Lorazepam [Ativan 0.5 mg Tablet] 0.5 mg PO Q8HP PRN 08/21/18 Valacyclovir HCl [Valtrex 500 mg Tablet] 500 mg PO BID 08/21/18 Nystatin [Mycostatin Cream 15 gm] 1 applic TP BID #1 tube 08/27/18 History of Present Illness Patient complains of: Fever History of Present Illness: KARINA LEE is a 58 year old female known to my practice who was referred to the emergency department by Dr. Miles, her oncologist, due to concern for neutropenic fever. Patient reported that she was well until about 1 week ago when she participated in shopping activities with her family and subsequently developed nasal and sinus congestion with associated intermittent chills and diaphoresis but no fever. She admitted to nausea, vomiting, poor appetite and po intake due to altered taste. She reported epigastric and left sided abdominal pain but denied diarrhea or constipation. she denied any si gnificant coughing, chest pain or difficulty with breathing. Her initial evaluation in the ED was remarkable for neutropenia without evidence of possible site of infection. Her morbidities include stage 2 breast cancer, currently on weekly chemotherapy regimen, chemotherapy induced neuropathy, recurrent genital herpes simplex, diarrhea, and obesity. Hospital Course Hospital Course: She was managed with empiric antibiotic coverage and reverse isolation status while on IV Vancomycin and Cefepime. Her blood culture was no growth after 5 day. She received Neupogen while on admission with gradual but definite improvement in her WBC. Her count this today was 16.3 with absolute neutrophil count at 11.6. She remain afebrile. She has been tolerant of oral feeding although her appetite remain suboptimal due to abnormal bitter taste sensation. She was seen in consultation by her [facility] oncology team. She will follow up with Dr. Salcedo and myself as instructed upon discharge. Physical Exam Vital Signs: Temp Pulse Resp BP Pulse Ox 97.9 F 86 15 114/59 L 99 08/27/18 15:14 08/27/18 15:14 08/27/18 15:14 08/27/18 15:14 08/27/18 15:14 Intake & Output 08/26/18 08/27/18 08/28/18 06:59 06:59 06:59 Intake Total 1420 2370 690 Balance 1420 2370 690 Weight 87.2 kg 87.9 kg Physical Exam: General appearance: PRESENT: no acute distress, well-developed, well-nourished Head exam: PRESENT: atraumatic, normocephalic Eye exam: PRESENT: conjunctiva pink. ABSENT: pallor, scleral icterus Ear exam: PRESENT: normal external ear exam Mouth exam: PRESENT: moist Respiratory exam: PRESENT: clear to auscultation bilateral Cardiovascular exam: PRESENT: RRR. ABSENT: diastolic murmur, rubs, systolic murmur GI/Abdominal exam: PRESENT: normal bowel sounds, soft. ABSENT: distended, guarding, mass, organomegaly, rebound, tenderness Extremities exam: ABSENT: pedal edema Neurological exam: PRESENT: alert, awake, oriented to person, oriented to place, oriented to time, oriented to situation, CN II-XII grossly intact. ABSENT: motor sensory deficit Psychiatric exam: PRESENT: appropriate affect, normal mood. ABSENT: homicidal ideation, suicidal ideation Skin exam: PRESENT: dry, warm Results Laboratory Results: 08/27/18 05:12 08/26/18 05:25 08/27/18 05:12 WBC 16.3 H RBC 2.81 L Hgb 9.2 L Hct 26.7 L MCV 95 MCH 32.7 MCHC 34.5 RDW 18.2 H Plt Count 116 L Seg Neutrophils % Not Reportable Lymphocytes % Not Reportable Monocytes % Not Reportable Eosinophils % Not Reportable Basophils % Not Reportable Absolute Neutrophils Not Reportable Absolute Lymphocytes Not Reportable Absolute Monocytes Not Reportable Absolute Eosinophils Not Reportable Absolute Basophils Not Reportable 08/21/18 17:38 Blood Blood Culture - Final NO GROWTH IN 5 DAYS Impressions: Chest X-Ray 08/21/18 12:51 IMPRESSION: NO ACUTE RADIOGRAPHIC FINDING IN THE CHEST. Abdomen/Pelvis CT 08/21/18 14:32 IMPRESSION: Uterine fibroids. No acute findings in the abdomen or pelvis. Ankle X-Ray 08/24/18 00:00 IMPRESSION: Soft tissue swelling. Qualifiers - * PATIENT BEING DISCHARGED WITH ANY OF THE FOLLOWING DIAGNOSIS: No Plan Discharge Plan: D/C home today. Follow up in the office ass instructed upon discharge.
[2018-08-27 19:52] VITALS: BP 107/50
== END 2018-08-27 20:30 | disposition home or self-care (01) | DRG 809 ==
LOC: ER 12:28 → EH 19:14 → 4S 21:00
PROVIDERS: ADMIT Internal Medicine Geriatric Medicine; ATTEND Internal Medicine Geriatric Medicine
DX: D61.810 Antineoplastic chemotherapy induced pancytopenia (principal); I47.1 Supraventricular tachycardia; T45.1X5A Adverse effect of antineoplastic and immunosuppressive drugs, initial encounter; R50.81 Fever presenting with conditions classified elsewhere; K21.9 Gastro-esophageal reflux disease without esophagitis; C50.919 Malignant neoplasm of unspecified site of unspecified female breast; A60.00 Herpesviral infection of urogenital system, unspecified
CPT/HCPCS: 36415; 36591; 71045; 74177; 80048; 80053; 81001; 83605; 85025; 85610; 87040; 87086; 87493; 93005; 93010; 96361; 96365; 96375; 99285; J0692; J1442; J2405; J3370; J3490; J7030; L1902

== ENCOUNTER 2018-10-10 20:46 | Emergency (ER) | payer MEDICAID ==
--- NOTE | 2018-10-10 22:29 | ER Document Report ---
ED Medical Screen (RME) - General Chief Complaint: Hand Swelling Stated Complaint: FINGER SWELLING Time Seen by Provider: 10/10/18 22:18 Primary Care Provider: YANET HAY MD [Primary Care Provider] - Follow up as needed Notes: Patient is a 58-year-old female presents to the emergency department for swelling to bilateral hands and discharge from the right ring finger. Patient is a breast cancer patient, last chemotherapy on . States she called her oncologist Dr. Salcedo who told her she presents to the emergency room. I have spoken with oncologist Dr. Salcedo who is requesting a CBC and CMP. States patient should not be neutropenic yet during her current stages of chemotherapy. Also requesting starting patient on potential antibiotics should the right ring finger appear infected. SKIN: Warm, dry, normal turgor. Minor swelling noted bilateral hands, right ring finger distally nail bed appears loose, with serosanguineous malodorous discharge noted under nail bed. I have greeted and performed a rapid initial assessment of this patient. A comprehensive ED assessment and evaluation of the patient, analysis of test results and completion of the medical decision making process will be conducted by additional ED providers. TRAVEL OUTSIDE OF THE [place] IN LAST 30 DAYS: No - Related Data Allergies/Adverse Reactions: No Known Allergies Allergy (Verified 10/10/18 20:47) Past Medical History - Past Medical History Cardiac Medical History: Denies: Hx Coronary Artery Disease, Hx Heart Attack, Hx Hypertension Pulmonary Medical History: Denies: Hx Asthma, Hx Bronchitis, Hx COPD, Hx Pneumonia Neurological Medical History: Denies: Hx Cerebrovascular Accident, Hx Seizures Renal/ Medical History: Denies: Hx Peritoneal Dialysis Malignancy Medical History: Reports: Hx Breast Cancer Musculoskeltal Medical History: Denies Hx Arthritis - Immunizations Immunizations up to date: Yes Hx Diphtheria, Pertussis, Tetanus Vaccination: Yes History of Influenza Vaccine for 02/2017 - 07/2017 Season: No Physical Exam - Vital signs Vitals: Temp Pulse Resp BP 98.4 F 63 17 113/83 10/10/18 20:51 10/10/18 20:51 10/10/18 20:51 10/10/18 20:51 Course - Vital Signs Vital signs: Temp Pulse Resp BP Pulse Ox 98.4 F 63 17 113/83 10/10/18 20:51 10/10/18 20:51 10/10/18 20:51 10/10/18 20:51 Doctor's Discharge - Discharge Referrals: YANET HAY MD [Primary Care Provider] - Follow up as needed
[2018-10-11] MEDS ORDERED: FLUCONAZOLE 100 MG TABLET PO ONE (00:57)
[2018-10-11] MEDS ORDERED: AMPICILLIN SOD/SULBACTAM 3 GM VIAL IV ONE (00:58)
--- NOTE | 2018-10-11 00:58 | ER Document Report ---
ED Hand/Wrist Injury - General Chief Complaint: Hand Swelling Stated Complaint: FINGER SWELLING Time Seen by Provider: 10/10/18 22:18 Primary Care Provider: YANET HAY MD [Primary Care Provider] - Follow up as needed Notes: 58-year-old female to emergency department chief complaint of hand pain and oozing coming out of the distal tip of the middle finger on the right hand and some pain on the middle finger of the left hand. Denies any injury. States that she noticed it was painful earlier today and started noticing drainage coming out from underneath the fingernail on the third digit on the right hand. Seems to be developing on the third digit of the left hand as well. Patient is a breast cancer patient on chemotherapy. Radiation. Last blood work done was within normal limits. Followed by Dr. Rachel Portillo she denies any other major concerns at this time TRAVEL OUTSIDE OF THE [place] IN LAST 30 DAYS: No - HPI Injury to: Middle finger Onset: This morning Where: Home - Related Data Allergies/Adverse Reactions: No Known Allergies Allergy (Verified 10/10/18 20:47) Past Medical History - General Information source: Patient - Social History Smoking Status: Unknown if Ever Smoked Frequency of alcohol use: None Drug Abuse: None Lives with: Family Family History: Reviewed & Not Pertinent - Past Medical History Cardiac Medical History: Denies: Hx Coronary Artery Disease, Hx Heart Attack, Hx Hypertension Pulmonary Medical History: Denies: Hx Asthma, Hx Bronchitis, Hx COPD, Hx Pneumonia Neurological Medical History: Denies: Hx Cerebrovascular Accident, Hx Seizures Renal/ Medical History: Denies: Hx Peritoneal Dialysis Malignancy Medical History: Reports: Hx Breast Cancer Musculoskeletal Medical History: Denies Hx Arthritis - Immunizations Immunizations up to date: Yes Hx Diphtheria, Pertussis, Tetanus Vaccination: Yes Review of Systems - Review of Systems Notes: Constitutional: denies: Chills, Diaphoresis, Fever, Malaise, Weakness EENT: denies: Eye discharge, Blurred vision, Tearing, Double vision, Nose congestion, Nose discharge, Throat swelling, Mouth pain Cardiovascular: denies: Palpitations, Heart racing, Orthopnea, Dyspnea, Chest pain Respiratory: denies: Cough, Hurts to breathe, Wheezing, Shortness of breath Gastrointestinal: denies: Abdominal pain, Diarrhea, Nausea, Vomiting, Black stools, bright red blood in stool Genitourinary: denies: Burning, Dysuria, Discharge, Frequency, Flank pain, Hematuria Musculoskeletal: denies: Joint pain, Joint swelling, Muscle pain, Muscle stiffness, back pain Hematologic/Lymphatic: denies: Anemia, Easy bleeding, Easy bruising, Blood clots Neurological/Psychological: denies: Confusion, Dementia, Depression, Loss of consciousness Skin: No lesions, no masses, no skin breakdown, no abscesses and complaining of swelling to the distal fingertips on the right and left hand. Drainage out of the third digit on the right hand. Physical Exam - Vital signs Vitals: Temp Pulse Resp BP 98.4 F 63 17 113/83 10/10/18 20:51 10/10/18 20:51 10/10/18 20:51 10/10/18 20:51 Interpretation: Normal - General General appearance: Appears well, Alert - HEENT Head: Normocephalic, Atraumatic Eyes: Normal Pupils: PERRL - Respiratory Respiratory status: No respiratory distress Chest status: Nontender Breath sounds: Normal Chest palpation: Normal - Cardiovascular Rhythm: Regular Heart sounds: Normal auscultation Murmur: No - Abdominal Inspection: Normal Distension: No distension Bowel sounds: Normal Tenderness: Nontender Organomegaly: No organomegaly - Back Back: Normal, Nontender - Extremities General upper extremity: Normal inspection, Nontender, Normal color, Normal ROM, Normal temperature General lower extremity: Normal inspection, Nontender, Normal color, Normal ROM, Normal temperature, Normal weight bearing. No: Rogerio's sign - Neurological Neuro grossly intact: Yes Cognition: Normal Orientation: AAOx4 Prabhakar Coma Scale Eye Opening: Spontaneous [place] Coma Scale Verbal: Oriented [place] Coma Scale Motor: Obeys Commands [place] Coma Scale Total: 15 Speech: Normal Motor strength normal: LUE, RUE, LLE, RLE Sensory: Normal - Psychological Associated symptoms: Normal affect, Normal mood - Skin Skin Temperature: Warm Skin Moisture: Dry Skin Color: Other - There is some mild swelling and drainage from the distal tip of the third digit on the right hand. There is no other drainage for any other fingers. It is tender to the touch at the distal finger pad. It is still soft but moderately swollen. Does not appear to be an active felon. Course - Re-evaluation Re-evalutation: 10/11/18 01:11 Based on the fact the patient is a chemotherapy patient on chemotherapy and radiation with having some acute possible infection of the cuticle and nail bed on the fingertips I am starting her on some antibiotics to cover her. At this time I also think that there could be a potential for fungal infection so we w ill give her a dose of Diflucan. We will do some basic labs to assess as well. If needed will consult with oncology however think more likely patient can be seen tomorrow in clinic clinic or Saturday morning. Patient has been advised to return if this is getting worse. I do not think the patient needs an incision and drainage at this time. She has not developed a obvious felon. 10/11/18 02:05 Laboratory 10/11/18 10/11/18 01:01 01:01 WBC 8.1 RBC 2.95 L Hgb 10.1 L Hct 30.5 L MCV 103 H MCH 34.2 H MCHC 33.2 RDW 19.9 H Plt Count 125 L Seg Neutrophils % 64.4 Lymphocytes % 22.9 Monocytes % 11.8 Eosinophils % 0.0 Basophils % 0.9 Absolute Neutrophils 5.2 Absolute Lymphocytes 1.9 Absolute Monocytes 1.0 Absolute Eosinophils 0.0 Absolute Basophils 0.1 Sodium 141.5 Potassium 4.4 Chloride 107 Carbon Dioxide 23 Anion Gap 12 BUN 10 Creatinine 0.71 Est GFR ( Amer) > 60 Est GFR (Non-Af Amer) > 60 Glucose 99 Calcium 9.3 Total Bilirubin 0.5 Direct Bilirubin 0.2 Neonat Total Bilirubin Not Reportable Neonat Direct Bilirubin Not Reportable Neonat Indirect Bili Not Reportable AST 25 ALT 29 Alkaline Phosphatase 80 Total Protein 6.5 Albumin 3.8 10/11/18 02:15 Patient's labs are reassuring. More likely she is having some nailbed dysfunction/fingernail loss from the chemotherapy. There is some concern on the patient's behalf that this is an infected finger. I guess this is a possibility. I have gone ahead and treated her with some antibiotics however uncertain whether or not this should be continued. I will go ahead and prescribe her some antibiotics but will talk to the oncologist in the morning and we will then contact the patient later to decide if she should continue with antibiotics. At this time I do believe after antibiotics are completed patient is stable for discharge. His were answered. Patient is comfortable with this plan. Will discharge at this time stable condition. - Vital Signs Vital signs: Temp Pulse Resp BP Pulse Ox 98.4 F 63 17 113/83 10/10/18 20:51 10/10/18 20:51 10/10/18 20:51 10/10/18 20:51 - Laboratory Result Diagrams: 10/11/18 01:01 10/11/18 01:01 Laboratory results interpreted by me: 10/11/18 01:01 RBC 2.95 L Hgb 10.1 L Hct 30.5 L MCV 103 H MCH 34.2 H RDW 19.9 H Plt Count 125 L Discharge - Discharge Clinical Impression: Infected cuticle Condition: Good Disposition: HOME, SELF-CARE Additional Instructions: Whether or not this is a paronychial infection remains to be seen. You are definitely at increased risk for infection based on suppressive caused from chemotherapy. However, the nailbeds can be affected with chemotherapy and this can be very similar presentation as an infection. Will be very important that you speak to your oncologist with regards to continuing treatment. At this time I am going to put you on some antibiotics but would like for you to speak with your oncologist to see if we should continue. Please follow-up with your oncologist as soon as possible. Prescriptions: Cephalexin Monohydrate [Keflex 500 mg Capsule] 500 mg PO Q6H 5 Days #20 capsule Referrals: RACHEL FOREMAN MD [ACTIVE STAFF] - Follow up in 3-5 days
[2018-10-11 01:18] LABS: ABSOLUTE BASOPHILS # (AUTO) 0.1 10^3/uL (0.0-0.2); ABSOLUTE LYMPHOCYTES (AUTO) 1.9 10^3/uL (0.5-4.7); ABSOLUTE NEUT (AUTO) 5.2 10^3/uL (1.7-8.2); BASOPHILS % (AUTO) 0.9 % (0-2); HEMATOCRIT 30.5 % (36.0-47.0); HEMOGLOBIN 10.1 g/dL (12.0-15.5); LYMPHOCYTES % (AUTO) 22.9 % (13-45); MEAN CORPUSCULAR HEMOGLOBIN 34.2 pg (27.0-33.4); MEAN CORPUSCULAR HGB CONC 33.2 g/dL (32.0-36.0); MEAN CORPUSCULAR VOLUME 103 fl (80-97); MONOCYTES % (AUTO) 11.8 % (3-13); PLATELET COUNT 125 10^3/uL (150-450); RED BLOOD COUNT 2.95 10^6/uL (3.72-5.28); RED CELL DISTRIBUTION WIDTH 19.9 % (11.5-14.0); SEGMENTED NEUTROPHILS % (AUTO) 64.4 % (42-78); TOTAL CELLS COUNTED % (AUTO) 100 %; WHITE BLOOD COUNT 8.1 10^3/uL (4.0-10.5)
[2018-10-11 01:45] LABS: ALANINE AMINOTRANSFERASE 29 U/L (9-52); ALBUMIN 3.8 g/dL (3.5-5.0); ALKALINE PHOSPHATASE 80 U/L (38-126); ANION GAP 12 (5-19); ASPARTATE AMINO TRANSFERASE 25 U/L (14-36); BILIRUBIN,DIRECT 0.2 mg/dL (0.0-0.4); BILIRUBIN,TOTAL 0.5 mg/dL (0.2-1.3); BLOOD UREA NITROGEN 10 mg/dL (7-20); CALCIUM 9.3 mg/dL (8.4-10.2); CARBON DIOXIDE 23 mmol/L (22-30); CHLORIDE 107 mmol/L (98-107); GLUCOSE 99 mg/dL (75-110); POTASSIUM 4.4 mmol/L (3.6-5.0); SODIUM 141.5 mmol/L (137-145); TOTAL PROTEIN 6.5 g/dL (6.3-8.2)
[2018-10-11 03:17] VITALS: BP 110/80
== END 2018-10-11 03:12 | disposition home or self-care (01) ==
LOC: ER 20:46
DX: L08.9 Local infection of the skin and subcutaneous tissue, unspecified (principal); M79.645 Pain in left finger(s); C50.919 Malignant neoplasm of unspecified site of unspecified female breast; Z79.899 Other long term (current) drug therapy
CPT/HCPCS: 36591; 99283; 96365; 36415; 87040; 85025; 80053; J0295; J3490; J1642

== ENCOUNTER → 2019-11-11 | Outpatient (CLI) | payer MEDICAID ==
--- NOTE | 2019-11-11 10:58 | RADIOLOGY REPORT (SQ) ---
EXAM DESCRIPTION: U/S ABDOMEN COMPLETE W/O DOP IMAGES COMPLETED DATE/TIME: 11/11/2019 10:44 am REASON FOR STUDY: RUQ PAIN (R10.11) R10.9 UNSPECIFIED ABDOMINAL PAIN COMPARISON: CT abdomen pelvis dated 08/21/2018 TECHNIQUE: Dynamic and static grayscale images acquired of the abdomen and recorded on PACS. Additio nal selected color Doppler and spectral images recorded. Note: Study does not meet criteria for complete doppler/duplex scan LIMITATIONS: None. FINDINGS: PANCREAS: Visualized portions of the pancreas are normal in appearance. LIVER: No masses. Echotexture normal. LIVER VASCULATURE: The liver is echogenic consistent with fatty infiltration. No focal masses. GALLBLADDER: Surgically absent. ULTRASOUND-DETECTED ORTIZ'S SIGN: Negative. INTRAHEPATIC DUCTS AND COMMON DUCT: CBD and intrahepatic ducts normal caliber. No filling defects. INFERIOR VENA CAVA: Normal flow. AORTA: No aneurysm. RIGHT KIDNEY: Normal size. Normal echogenicity. No solid or suspicious masses. No hydronephros is. No calcifications. LEFT KIDNEY: Normal size. Normal echogenicity. No solid or suspicious masses. No hydronephrosi s. No calcifications. SPLEEN: Normal size. No solid masses. PERITONEAL AND PLEURAL SPACES: No ascites or effusions. OTHER: No other significant finding. IMPRESSION: Fatty infiltrated liver. No other significant findings. Prior cholecystectomy. TECHNICAL DOCUMENTATION: JOB ID: [id number] [employer]- All Rights Reserved Reading location - IP/workstation name: [email or web address]
== END ==
LOC: RAD 08:40
PROVIDERS: ATTEND Nurse Practitioner Adult Health
DX: R10.11 Right upper quadrant pain (principal); K76.0 Fatty (change of) liver, not elsewhere classified
CPT/HCPCS: 76700